=== PATIENT | female | born 1970 | race Caucasian/White ===

== ENCOUNTER 2016-08-26 22:47 | Emergency (ER) | payer OTHER ==
[2016-08-26 22:56] VITALS: BP 141/78; PULSE 94; TEMP 98.7; BMI 23.0
[2016-08-26] MEDS ORDERED: ACETAMINOPHEN 650 MG/20.3 ML ORAL SOLUTION (CUPS) PO ONE (23:24)
[2016-08-26] MEDS ORDERED: ACETAMINOPHEN 325 MG TABLET (FP) ONE (23:35)
[2016-08-26 23:48] LABS: BASOPHIL 0.5 % (0-2.0); MCH 32.8 pg (25.7-33.7); MCHC 33.4 g/dl (32.0-36.0); MEAN CELL VOLUME 98.2 fl (80-96); MEAN PLT VOLUME 7.2 fl (7.5-11.1); PLATELET COUNT 409 K/MM3 (134-434); WHITE BLOOD COUNT 9.1 K/mm3 (4.0-10.0)
[2016-08-26 23:52] LABS: URINE APPEARANCE CLEAR; URINE BILIRUBIN NEGATIVE (NEGATIVE); URINE COLOR YELLOW; URINE GLUCOSE (UA) NEGATIVE (NEGATIVE); URINE KETONE TRACE (NEGATIVE); URINE NITRITE NEGATIVE (NEGATIVE); URINE PROTEIN NEGATIVE (NEGATIVE); URINE UROBILINOGEN NEGATIVE E.U./dl (0.2-1.0)
[2016-08-26 23:54] LABS: URINE BLOOD 3+ (NEGATIVE); URINE LEUK ESTERASE TRACE (NEGATIVE)
[2016-08-27] LABS: URINE BACTERIA FEW /hpf (NONE SEEN); URINE MUCUS RARE; URINE RBC 93 /hpf (0-3); URINE WBC 2 /hpf (3-5)
[2016-08-27 00:26] LABS: ALBUMIN 3.5 g/dl (3.4-5.0); ANION GAP 10 (8-16); CALCIUM 8.9 mg/dL (8.5-10.1); CO2 25 mmol/L (21-32); CREATININE 0.7 mg/dL (0.55-1.02); GLUCOSE,RANDOM 96 mg/dL (74-106); SGOT/AST 41 U/L (15-37); SGPT/ALT 60 U/L (12-78)
--- NOTE | 2016-08-27 00:33 | PDOC ---
History of Present Illness - General History Source: Patient, Spouse Exam Limitations: No Limitations - History of Present Illness Initial Comments: 08/27/16 01:16 The patient is a 46 year old female, with a significant past medical history of breast CA (in remission), who presents to the emergency department with intermittent lower abdominal cramping and vaginal bleeding for the past 3 days but worsening tonight. The patient reports blood clots present with the vaginal bleeding. She states that her last menstrual period was 2 months ago, she does not know if she is currently . The patients is with her in the ED. The patient's primary language is Maltese, is translating. The patient denies fever, chills, nausea, vomiting, vaginal discharge or any dysuria. Allergies: None reported. Past Surgical History: Appendectomy Social History: Non smoker. Denies alcohol or drug use. <Salud Tellez - Last Filed: 08/27/16 01:55> - General History Source: Patient, Spouse Exam Limitations: No Limitations <Aguilar Leon - Last Filed: 08/27/16 02:18> - General Chief Complaint: Vaginal Bleeding Stated Complaint: ABDOMINAL PAIN Time Seen by Provider: 08/26/16 23:05 Past History <Salud Tellez - Last Filed: 08/27/16 01:55> - Past Medical History Anemia: No Asthma: No Cancer: Yes (LEFT breast) Cardiac Disorders: No CVA: No COPD: No CHF: No Dementia: No Diabetes: No GI Disorders: No Disorders: No HTN: No Hypercholesterolemia: No Liver Disease: No Seizures: No Thyroid Disease: No - Surgical History Abdominal Surgery: Yes Appendectomy: Yes Cardiac Surgery: No Cholecystectomy: No Lung Surgery: No Neurologic Surgery: No Orthopedic Surgery: No - Reproductive History (#): 3 Para: 2 - Psycho/Social/Smoking Cessation Hx Anxiety: No Suicidal Ideation: No Smoking Status: No Smoking History: Never smoked Have you smoked in the past 12 months: No Number of Cigarettes Smoked Daily: 0 Hx Alcohol Use: No Drug/Substance Use Hx: No Substance Use Type: None Hx Substance Use Treatment: No <Aguilar Leon - Last Filed: 08/27/16 02:18> - Past Medical History Allergies/Adverse Reactions: Allergies Allergy/AdvReac Type Severity Reaction Status Date / Time No Known Drug Allergies Allergy Verified 02/21/16 23:46 Home Medications: Ambulatory Orders Acetaminophen [Tylenol] 650 mg PO Q4H PRN #20 tablet 08/27/16 Cephalexin [Keflex] 500 mg PO BID #14 capsule 08/27/16 Review of Systems - Review of Systems Able to Perform ROS?: Yes Comments:: 08/27/16 01:13 GENERAL/CONSTITUTIONAL: No fever or chills. No weakness. HEAD, EYES, EARS, NOSE AND THROAT: No change in vision. No ear pain or discharge. No sore throat. CARDIOVASCULAR: No chest pain or shortness of breath. RESPIRATORY: No cough, wheezing, or hemoptysis. GASTROINTESTINAL: +Abdominal cramping. No nausea, vomiting, diarrhea or constipation. GENITOURINARY: +Vaginal bleeding. No dysuria, frequency, or change in urination. MUSCULOSKELETAL: No joint or muscle swelling or pain. No neck or back pain. SKIN: No rash. NEUROLOGIC: No headache, vertigo, loss of consciousness, or change in strength/ sensation. ENDOCRINE: No increased thirst. No abnormal weight change. HEMATOLOGIC/LYMPHATIC: No anemia, easy bleeding, or history of blood clots. ALLERGIC/IMMUNOLOGIC: No hives or skin allergy. <Salud Tellez - Last Filed: 08/27/16 01:55> *Physical Exam - Vital Signs Last Vital Signs Temp Pulse Resp BP Pulse Ox 98.7 F 94 H 28 H 141/78 100 08/26/16 22:54 08/26/16 22:54 08/26/16 22:54 08/26/16 22:54 08/26/16 22:54 - Physical Exam Comments: 08/27/16 01:13 GENERAL: Awake, alert, and fully oriented, uncomfortable appearing. HEAD: No signs of trauma. EYES: PERRLA, EOMI, sclera anicteric, conjunctiva clear. ENT: Auricles normal inspection, hearing grossly normal, nares patent, oropharynx clear without exudates. Moist mucosa. NECK: Normal ROM, supple, no lymphadenopathy, JVD, or masses. LUNGS: Breath sounds equal, clear to auscultation bilaterally. No wheezes, and no crackles. HEART: Regular rate and rhythm, normal S1 and S2, no murmurs, rubs or gallops. ABDOMEN: Soft, nontender, normoactive bowel sounds. No guarding, no rebound. No masses. EXTREMITIES: Normal range of motion, no edema. No clubbing or cyanosis. No cords , erythema, or tenderness. NEUROLOGICAL: Cranial nerves II through XII intact. Normal speech, normal gait. SKIN: Warm, dry, normal turgor, no rashes or lesions noted. PELVIC EXAM: Blood in vault. Cervical os is closed. Cervical motion tenderness. <ElsmoreSalud Faulkner - Last Filed: 08/27/16 01:55> - Vital Signs Last Vital Signs Temp Pulse Resp BP Pulse Ox 98.7 F 94 H 28 H 141/78 100 08/26/16 22:54 08/26/16 22:54 08/26/16 22:54 08/26/16 22:54 08/26/16 22:54 <Aguilar Leon - Last Filed: 08/27/16 02:18> ED Treatment Course - LABORATORY CBC & Chemistry Diagram: 08/26/16 23:30 08/26/16 23:30 - ADDITIONAL ORDERS Additional order review: Laboratory Results 08/26/16 08/26/16 23:30 23:30 Sodium 139 Potassium 4.2 Chloride 104 Carbon Dioxide 25 Anion Gap 10 BUN 17 Creatinine 0.7 Creat Clearance w eGFR > 60 Random Glucose 96 Calcium 8.9 Total Bilirubin 0.3 AST 41 H D ALT 60 D Alkaline Phosphatase 118 H D Total Protein 7.6 Albumin 3.5 Lipase 272 Beta HCG, Quant 1137.3 Urine Color Yellow Urine Appearance Clear Urine pH 5.0 Ur Specific [place] 1.024 Urine Protein Negative Urine Glucose (UA) Negative Urine Ketones Trace H Urine Blood 3+ H Urine Nitrite Negative Urine Bilirubin Negative Urine Urobilinogen Negative Ur Leukocyte Esterase Trace H Urine RBC 93 Urine WBC 2 Ur Epithelial Cells Rare Urine Bacteria Few Urine Mucus Rare Urine HCG, Qual Positive 08/26/16 23:30 RBC 3.49 L MCV 98.2 H MCHC 33.4 RDW 12.0 MPV 7.2 L Neutrophils % 70.0 D Lymphocytes % 23.2 D Monocytes % 5.3 Eosinophils % 1.0 Basophils % 0.5 - Medications Given in the ED: ED Medications Discontinued Medications Generic Name Dose Route Start Last Admin Trade Name Freq PRN Reason Stop Dose Admin Acetaminophen 975 mg 08/26/16 23:24 08/26/16 23:37 Tylenol Oral Solution - PO 08/26/16 23:25 975 mg ONCE ONE Administration <Salud Tellez - Last Filed: 08/27/16 01:55> - LABORATORY CBC & Chemistry Diagram: 08/26/16 23:30 08/26/16 23:30 - ADDITIONAL ORDERS Additional order review: Laboratory Results 08/26/16 23:30 Urine Color Yellow Urine Appearance Clear Urine pH 5.0 Ur Specific [place] 1.024 Urine Protein Negative Urine Glucose (UA) Negative Urine Ketones Trace H Urine Blood 3+ H Urine Nitrite Negative Urine Bilirubin Negative Urine Urobilinogen Negative Ur Leukocyte Esterase Trace H Urine RBC 93 Urine WBC 2 Ur Epithelial Cells Rare Urine Bacteria Few Urine Mucus Rare Urine HCG, Qual Positive 08/26/16 23:30 RBC 3.49 L MCV 98.2 H MCHC 33.4 RDW 12.0 MPV 7.2 L Neutrophils % 70.0 D Lymphocytes % 23.2 D Monocytes % 5.3 Eosinophils % 1.0 Basophils % 0.5 - RADIOLOGY Radiology Studies Ordered: Category Date Time Status TRANSVAGINAL US PREG [US] Stat Ultrasound 08/27/16 00:03 Ordered - Medications Given in the ED: ED Medications Discontinued Medications Generic Name Dose Route Start Last Admin Trade Name Freq PRN Reason Stop Dose Admin Acetaminophen 975 mg 08/26/16 23:24 08/26/16 23:37 Tylenol Oral Solution - PO 08/26/16 23:25 975 mg ONCE ONE Administration <Aguilar Leon - Last Filed: 08/27/16 02:18> Medical Decision Making - Medical Decision Making 08/27/16 01:55 EXAM: TRANSVAGINAL US PREG Reviewed By: Dr. Irwin Rosenberg IMPRESSION: Normal exam without evidence of IUP. Considering the hCG level, findings do not represent a normal early . Miscarriage and ectopic are possible, and follow up sonography with correlation to hCG levels is recommended. EXAM: ABDOMEN US Reviewed By: Dr. Irwin Rosenberg IMPRESSION: No ascites. Multiple gallstones. <Salud Tellez - Last Filed: 08/27/16 01:55> - Medical Decision Making 08/27/16 00:29 A portion of this note was documented by scribe services under my direction. I have reviewed the details of the note, within reason, and agree with the documentation with the following case summary and management plan written by me. Patient treated in the ED. Nursing notes are reviewed and incorporated into the medical decision-making. Vital signs reviewed. Peripheral IV access obtained by the nurse, laboratory studies are drawn and sent, reviewed and interpreted by myself. Vital Signs Temp Pulse Resp BP Pulse Ox 98.7 F 94 H 28 H 141/78 100 08/26/16 22:54 08/26/16 22:54 08/26/16 22:54 08/26/16 22:54 08/26/16 22:54 46-year-old female with past medical history breast cancer history status post bilateral mastectomy, in remission, presents with vaginal bleeding. Patient reports last menstrual period 2 months ago. Started noticing bleeding 3 days ago with blood clots and heavy vaginal bleeding. Has had small intermittent vaginal bleeding but persistent lower abdominal cramping. Denies dysuria or vaginal discharge. The patient is urine test positive. Her cervical os is closed. Patient 's differential includes ectopic versus threatened miscarriage versus complete . We'll obtain labs, beta hCG, type and screen, transvaginal ultrasound and reassess. 08/27/16 01:49 Ultrasound reviewed. FAST negative. Normal exam without evidence of IUP. Clinically correlate. 08/27/16 02:10 CBC, BMP 08/26/16 23:30 08/26/16 23:30 CMP Sodium 139 mmol/L (136-145) 08/26/16 23:30 Potassium 4.2 mmol/L (3.5-5.1) 08/26/16 23:30 Chloride 104 mmol/L (98-107) 08/26/16 23:30 Carbon Dioxide 25 mmol/L (21-32) 08/26/16 23:30 Anion Gap 10 (8-16) 08/26/16 23:30 BUN 17 mg/dL (7-18) 08/26/16 23:30 Creatinine 0.7 mg/dL (0.55-1.02) 08/26/16 23:30 Creat Clearance w eGFR > 60 (>60) 08/26/16 23:30 Random Glucose 96 mg/dL (74-106) 08/26/16 23:30 Calcium 8.9 mg/dL (8.5-10.1) 08/26/16 23:30 Total Bilirubin 0.3 mg/dL (0.2-1.0) 08/26/16 23:30 AST 41 U/L (15-37) H D 08/26/16 23:30 ALT 60 U/L (12-78) D 08/26/16 23:30 Alkaline Phosphatase 118 U/L (45-117) H D 08/26/16 23:30 Total Protein 7.6 g/dl (6.4-8.2) 08/26/16: Albumin 3.5 g/dl (3.4-5.0) 08/26/16: Lipase 272 U/L (73-393) 08/26/16 Beta HCG, Quant 1137.3 mIU/ml 08/26/16 Urine Test Results Urine Color Yellow 08/26/16 Urine Appearance Clear 08/26/16: Urine pH 5.0 (5.0-8.0) 08/26/16: Ur Specific [place] 1.024 (1.001-1.035) 08/26/16: Urine Protein Negative (NEGATIVE) 08/26/16:30 Urine Glucose (UA) Negative (NEGATIVE) 08/26/16: Urine Ketones Trace (NEGATIVE) H 08/26/16: Urine Blood 3+ (NEGATIVE) H 08/26/16 23:30 Urine Nitrite Negative (NEGATIVE) 08/26/16:30 Urine Bilirubin Negative (NEGATIVE) 08/26/16:30 Ur Leukocyte Esterase Trace (NEGATIVE) H 08/26/16:30 Urine RBC 93 /hpf (0-3) 08/26/16 23:30 Urine WBC 2 /hpf (3-5) 08/26/16:30 Ur Epithelial Cells Rare /hpf (FEW) 08/26/16:30 Urine Bacteria Few /hpf (NONE SEEN) 08/26/16: Urine Mucus Rare 08/26/16: Rh positive. After reassessment with tylenol, patient reports significant relief. Trace leuks in urine. Will prescribe keflex. I had discussed with the patient and her that with a beta HCG 1137 and undetectable IUP, ectopic is still within the differential. Now that the patient is more comfortable, the patient can be discharged with the caveat that she returns in 48 hours for a repeat beta HCG and ultrasound. I instructed them that if the bleeding is significant or the patient feels uncontrollable pain, she needs to return to the ER for further evaluation. I discussed the physical exam findings, ancillary test results and final diagnoses with the patient. I answered all of the patient's questions. The patient was satisfied with the care received and felt comfortable with the discharge plan and treatment plan. The patient will call their primary care physician within 24 hours to arrange follow-up and will return to the Emergency Department with any new, persistant or worsening symptoms. <Aguilar Leon - Last Filed: 08/27/16 02:18> *DC/Admit/Observation/Transfer - Attestations Scribe Attestion: 08/27/16 01:00 Documentation prepared by Salud Tellez, acting as medical cost consultant for Aguilar Leon MD. <Salud Tellez - Last Filed: 08/27/16 01:55> - Discharge Dispostion Admit: No <Aguilar Leon - Last Filed: 08/27/16 02:18> Diagnosis at time of Disposition: Vaginal bleeding before 22 weeks gestation - Discharge Dispostion Disposition: HOME Condition at time of disposition: Stable - Prescriptions Prescriptions: Cephalexin [Keflex] 500 mg PO BID #14 capsule Acetaminophen [Tylenol] 650 mg PO Q4H PRN #20 tablet PRN Reason: Pain - Patient Instructions Printed Discharge Instructions: DI for Vaginal Bleeding During Additional Instructions: Please return to the ER in 2 days for repeat blood work (beta HCG) and ultrasound. If you notice any uncontrollable bleeding or uncontrollable pain, please return to the ER for further evaluation. Take 500 mg keflex (antibiotic) every 12 hours for your urine. Take 650 mg tylenol every 4 hours as needed for pain. Do NOT take any motrin as this is not safe for . Print Language: LIBERIAN
[2016-08-27 00:44] LABS: ALK PHOS 118 U/L (45-117); BILIRUBIN,TOTAL 0.3 mg/dL (0.2-1.0); TOT PROT 7.6 g/dl (6.4-8.2)
[2016-08-27] MEDS ORDERED: CEPHALEXIN MONOHYDRATE 500 MG CAPSULE (UD) PO ONE (02:10)
--- NOTE | 2016-08-27 18:01 | PDOC ---
*Physical Exam - Vital Signs Last Vital Signs Temp Pulse Resp BP Pulse Ox 98.7 F 94 H 28 H 141/78 100 08/26/16 22:54 08/26/16 22:54 08/26/16 22:54 08/26/16 22:54 08/26/16 22:54 ED Treatment Course - LABORATORY CBC & Chemistry Diagram: 08/26/16 23:30 08/26/16 23:30 - ADDITIONAL ORDERS Additional order review: 08/26/16 23:30 RBC 3.49 L MCV 98.2 H MCHC 33.4 RDW 12.0 MPV 7.2 L Neutrophils % 70.0 D Lymphocytes % 23.2 D Monocytes % 5.3 Eosinophils % 1.0 Basophils % 0.5 - Medications Given in the ED: ED Medications Discontinued Medications Generic Name Dose Route Start Last Admin Trade Name Freq PRN Reason Stop Dose Admin Acetaminophen 975 mg 08/26/16 23:24 08/26/16 23:37 Tylenol Oral Solution - PO 08/26/16 23:25 975 mg ONCE ONE Administration Cephalexin HCl 500 mg 08/27/16 02:10 08/27/16 03:02 Keflex - PO 08/27/16 02:11 500 mg ONCE ONE Administration *DC/Admit/Observation/Transfer Diagnosis at time of Disposition: Vaginal bleeding before 22 weeks gestation - Discharge Dispostion Disposition: HOME Condition at time of disposition: Stable - Prescriptions Prescriptions: Cephalexin [Keflex] 500 mg PO BID #14 capsule Acetaminophen [Tylenol] 650 mg PO Q4H PRN #20 tablet PRN Reason: Pain - Referrals - Patient Instructions Printed Discharge Instructions: DI for Vaginal Bleeding During Additional Instructions: Please return to the ER in 2 days for repeat blood work (beta HCG) and ultrasound. If you notice any uncontrollable bleeding or uncontrollable pain, please return to the ER for further evaluation. Take 500 mg keflex (antibiotic) every 12 hours for your urine. Take 650 mg tylenol every 4 hours as needed for pain. Do NOT take any motrin as this is not safe for . Print Language: YAKUT - Post Discharge Activity
== END 2016-08-27 03:03 | disposition home or self-care (01) ==
LOC: JER 22:47
DX: O20.8 Other hemorrhage in early pregnancy (principal); Z3A.01 Less than 8 weeks gestation of pregnancy
CPT/HCPCS: 36415; 76700-TC; 76817-TC; 80053; 81003; 81015; 83690; 84702; 84703; 85025; 86850; 86900; 86901; 99283-25

== ENCOUNTER 2017-04-29 15:57 | Emergency (ER) | payer OTHER ==
[2017-04-29 16:13] VITALS: BMI 24.7
--- NOTE | 2017-04-29 16:27 | PDOC ---
History of Present Illness <Onelia Avina - Last Filed: 04/29/17 16:27> - General History Source: Patient Exam Limitations: No Limitations - History of Present Illness Initial Comments: 04/29/17 16:39 The patient is a 46 year old female brought via EMS and presenting with her , with a significant past medical history of left sided breast CA ( currently on chemo), who presents to the emergency department with lightheadedness, palpitations, generalized weakness, cough, nausea and loss of appetite. The notes that the patient is currently in chemo, with the last treatment being 5 days ago. She reports that her cough is dry in nature and that she has not been eating or drinking normally. The patient denies chest pain, shortness of breath, headache and dizziness. Denies fever, chills, vomit, diarrhea and constipation. Denies dysuria, frequency, urgency and hematuria. Allergies: None Past surgical history: Appendectomy Social history: No alcohol, tobacco or drug use reported Oncologist - Dr. Metz ([phone]) Assitant - Beckie Crews <Pierre Ortega - Last Filed: 04/29/17 16:30> <Teresita Adrian - Last Filed: 04/29/17 20:33> - General Chief Complaint: Lightheaded Stated Complaint: LIGHTHEADED Past History - Past Medical History Anemia: No Asthma: No Cancer: Yes (LEFT breast) Cardiac Disorders: No CVA: No COPD: No CHF: No Dementia: No Diabetes: No GI Disorders: No Disorders: No HTN: No Hypercholesterolemia: No Liver Disease: No Seizures: No Thyroid Disease: No - Surgical History Abdominal Surgery: Yes Appendectomy: Yes Cardiac Surgery: No Cholecystectomy: No Lung Surgery: No Neurologic Surgery: No Orthopedic Surgery: No - Reproductive History (#): 3 Para: 2 - Immunization History Immunization Up to Date: Yes - Suicide/Smoking/Psychosocial Hx Smoking Status: No Smoking History: Never smoked Have you smoked in the past 12 months: No Number of Cigarettes Smoked Daily: 0 Information on smoking cessation initiated: No Hx Alcohol Use: No Drug/Substance Use Hx: No Substance Use Type: None Hx Substance Use Treatment: No <Onelia Avina - Last Filed: 04/29/17 16:27> <Pierre Ortega - Last Filed: 04/29/17 16:30> <Teresita Adrian - Last Filed: 04/29/17 20:33> - Past Medical History Allergies/Adverse Reactions: Allergies Allergy/AdvReac Type Severity Reaction Status Date / Time No Known Drug Allergies Allergy Verified 04/29/17 16:08 Home Medications: Ambulatory Orders Ondansetron HCl 8 mg PO Q6H 04/29/17 Sulfamethoxazole/Trimethoprim [Bactrim Ds -] 1 tab PO BID #14 tablet 04/29/17 Review of Systems - Review of Systems Able to Perform ROS?: Yes Comments:: 04/29/17 16:31 GENERAL/CONSTITUTIONAL: (+) Generalized weakness, loss of appetite. No fever or chills. HEAD, EYES, EARS, NOSE AND THROAT: No change in vision. No ear pain or discharge. No sore throat.- CARDIOVASCULAR: No chest pain or shortness of breath RESPIRATORY: (+) Cough. No wheezing, or hemoptysis. GASTROINTESTINAL: (+) Nausea. No vomiting, diarrhea or constipation. GENITOURINARY: No dysuria, frequency, or change in urination. MUSCULOSKELETAL: No joint or muscle swelling or pain. No neck or back pain. SKIN: No rash NEUROLOGIC: (+) Lightheadedness. No headache, loss of consciousness, or change in strength/sensation. ENDOCRINE: No increased thirst. No abnormal weight change HEMATOLOGIC/LYMPHATIC: No anemia, easy bleeding, or history of blood clots. ALLERGIC/IMMUNOLOGIC: No hives or skin allergy. <Pierre Ortega - Last Filed: 04/29/17 16:30> *Physical Exam - Vital Signs Last Vital Signs Temp Pulse Resp BP Pulse Ox 98.9 F 96 H 14 97/55 100 04/29/17 16:08 04/29/17 16:08 04/29/17 16:08 04/29/17 16:08 04/29/17 16:08 <Onelia Avina - Last Filed: 04/29/17 16:27> - Vital Signs Last Vital Signs Temp Pulse Resp BP Pulse Ox 98.9 F 96 H 14 97/55 100 04/29/17 16:08 04/29/17 16:08 04/29/17 16:08 04/29/17 16:08 04/29/17 16:08 - Physical Exam Comments: 04/29/17 16:30 GENERAL: Awake, alert, and fully oriented, in no acute distress HEAD: No signs of trauma, normocephalic, atraumatic EYES: PERRLA, EOMI, sclera anicteric, conjunctiva clear ENT: Auricles normal inspection, hearing grossly normal, nares patent, oropharynx clear without exudates. Moist mucosa NECK: Normal ROM, supple, no lymphadenopathy, JVD, or masses LUNGS: No distress, speaks full sentences, clear to auscultation bilaterally HEART: Regular rate and rhythm, normal S1 and S2, no murmurs, rubs or gallops, peripheral pulses normal and equal bilaterally. ABDOMEN: Soft, nontender, normoactive bowel sounds. No guarding, no rebound. No masses EXTREMITIES : Normal inspection, Normal range of motion, no edema. No clubbing or cyanosis. NEUROLOGICAL: Cranial nerves II through XII grossly intact. Normal speech, normal gait, no focal sensorimotor deficits SKIN: Warm, Dry, normal turgor, no rashes or lesions noted. <Pierre Ortega - Last Filed: 04/29/17 16:30> - Vital Signs Last Vital Signs Temp Pulse Resp BP Pulse Ox 97.9 F 82 18 98/63 96 04/29/17 19:07 04/29/17 19:07 04/29/17 19:07 04/29/17 19:07 04/29/17 19:07 <Teresita Adrian - Last Filed: 04/29/17 20:33> ED Treatment Course - LABORATORY CBC & Chemistry Diagram: 04/29/17 17:24 04/29/17 17:24 - ADDITIONAL ORDERS Additional order review: Laboratory Results 04/29/17 04/29/17 04/29/17 18:00 17:24 17:24 Sodium 135 L Potassium 4.1 Chloride 102 Carbon Dioxide 26 Anion Gap 7 L BUN 14 Creatinine 0.7 Creat Clearance w eGFR > 60 Random Glucose 107 H Lactic Acid 1.3 Calcium 8.4 L Total Bilirubin 0.3 AST 19 D ALT 25 D Alkaline Phosphatase 235 H D Creatine Kinase 49 Troponin I < 0.02 Total Protein 7.1 Albumin 3.6 Urine Color Yellow Urine Appearance Slcloudy Urine pH 6.0 Urine Protein Negative Urine Glucose (UA) Negative Urine Ketones Negative Urine Blood 3+ H Urine Nitrite Positive Urine Bilirubin Negative Urine Urobilinogen Negative Urine RBC 3 Urine WBC 8 Ur Epithelial Cells Rare Urine Bacteria Many Urine Mucus Rare 04/29/17 17:24 RBC 2.67 L D MCV 97.1 H MCHC 35.0 RDW 17.0 H D MPV 6.5 L Neutrophils % No Result Required. Lymphocytes % No Result Required. - Medications Given in the ED: ED Medications Discontinued Medications Generic Name Dose Route Start Last Admin Trade Name Wil PRN Reason Stop Dose Admin Metoclopramide HCl 10 mg 04/29/17 16:38 04/29/17 17:02 Reglan Injection - IVPB 04/29/17 16:39 10 mg ONCE ONE Administration Sodium Chloride 1,000 ml 04/29/17 16:39 04/29/17 17:02 Normal Saline - IV 04/29/17 16:40 1,000 ml ONCE ONE Administration Sodium Chloride 1,000 ml 04/29/17 18:27 04/29/17 19:08 Normal Saline - IV 04/29/17 18:28 1,000 ml ONCE ONE Administration Trimethoprim/Sulfamethoxazole 1 each 04/29/17 19:54 04/29/17 20:01 Bactrim Ds - PO 04/29/17 19:55 1 each ONCE ONE Administration <Teresita Adrian - Last Filed: 04/29/17 20:33> Medical Decision Making - Medical Decision Making 04/29/17 20:32 Pt is feeling better in the ER after hydration. She has a UTI that it nitrite positive. Pt confirms that she felt dysuria this AM. She will be treated with bactrim DS BID. Pt is to follow with PMD. <Teresita Adrian - Last Filed: 04/29/17 20:33> *DC/Admit/Observation/Transfer <Onelia Avina - Last Filed: 04/29/17 16:27> - Attestations Scribe Attestion: 04/29/17 16:30 Documentation prepared by Pierre Ortega, acting as biomedical engineering technologist for Onelia Avina MD <Pierre Ortega - Last Filed: 04/29/17 16:30> <Teresita Adrian - Last Filed: 04/29/17 20:33> Diagnosis at time of Disposition: UTI (urinary tract infection), Anemia, Nausea and vomiting - Discharge Dispostion Disposition: HOME Condition at time of disposition: Stable - Prescriptions Prescriptions: Sulfamethoxazole/Trimethoprim [Bactrim Ds -] 1 tab PO BID #14 tablet - Patient Instructions Printed Discharge Instructions: Urinary Tract Infection, Nausea and Vomiting- Adult
[2017-04-29] MEDS ORDERED: METOCLOPRAMIDE HCL INJECTION 10 MG/2 ML VIAL IVPB ONE (16:38)
[2017-04-29] MEDS ORDERED: SODIUM CHLORIDE 0.9% 1000 ML INFUS.BAG IV ONE ×2 (16:39→18:27)
[2017-04-29] MEDS ORDERED: METOCLOPRAMIDE HCL INJECTION 10 MG/2 ML VIAL ONE (17:00)
[2017-04-29 17:35] LABS: MEAN CELL VOLUME 97.1 fl (80-96); MEAN PLT VOLUME 6.5 fl (7.5-11.1); PLATELET COUNT 328 K/MM3 (134-434)
[2017-04-29 18:00] LABS: ALBUMIN 3.6 g/dl (3.4-5.0); ANION GAP 7 (8-16); BILIRUBIN,TOTAL 0.3 mg/dL (0.2-1.0); CALCIUM 8.4 mg/dL (8.5-10.1); CO2 26 mmol/L (21-32); CREATININE 0.7 mg/dL (0.55-1.02); GLUCOSE,RANDOM 107 mg/dL (74-106); SGPT/ALT 25 U/L (12-78); TOT PROT 7.1 g/dl (6.4-8.2)
[2017-04-29 18:02] LABS: ALK PHOS 235 U/L (45-117); CPK 49 IU/L (26-192); TROPONIN I < 0.02 ng/ml (0.00-0.05)
[2017-04-29 18:03] LABS: SGOT/AST 19 U/L (15-37)
[2017-04-29 18:10] LABS: URINE APPEARANCE SLCLOUDY; URINE BILIRUBIN NEGATIVE (NEGATIVE); URINE BLOOD 3+ (NEGATIVE); URINE COLOR YELLOW; URINE GLUCOSE (UA) NEGATIVE (NEGATIVE); URINE KETONE NEGATIVE (NEGATIVE); URINE LEUK ESTERASE NEGATIVE (NEGATIVE); URINE NITRITE POSITIVE (NEGATIVE); URINE PROTEIN NEGATIVE (NEGATIVE); URINE UROBILINOGEN NEGATIVE mg/dL (0.2-1.0)
[2017-04-29 18:21] LABS: URINE BACTERIA MANY /hpf (NONE SEEN); URINE MUCUS RARE; URINE RBC 3 /hpf (0-3); URINE WBC 8 /hpf (3-5)
[2017-04-29 19:08] VITALS: BP 98/63; PULSE 82; TEMP 97.9
[2017-04-29 19:22] LABS: PLATELET ESTIMATE ADEQUATE (NORMAL); TOTAL CELLS COUNTED 100
[2017-04-29] MEDS ORDERED: SULFAMETHOXAZOLE/TRIMETHOPRIM 800MG/160MG D.S. TABLET PO ONE (19:54)
[2017-04-29] MEDS ORDERED: SULFAMETHOXAZOLE/TRIMETHOPRIM 800MG/160MG D.S. TABLET ONE (19:56)
[2017-04-29] MEDS ORDERED: NITROFURANTOIN MACROCRYSTAL 50 MG CAPSULE (FP) PO SCH (20:00)
--- NOTE | 2017-04-30 09:53 | EKG ---
Test Reason : Blood Pressure : / mmHG Vent. Rate : 076 BPM Atrial Rate : 076 BPM P-R Int : 144 ms QRS Dur : 082 ms QT Int : 418 ms P-R-T Axes : 053 004 040 degrees QTc Int : 470 ms NORMAL SINUS RHYTHM NONSPECIFIC T WAVE ABNORMALITY PROLONGED QT ABNORMAL ECG WHEN COMPARED WITH ECG OF 21-FEB-2016 23:51, T WAVE INVERSION NOW EVIDENT IN ANTERIOR LEADS Confirmed by ERIKA JOSEPH MD ([id number]) on 04/30/2017 9:53:41 AM Referred By: Confirmed By:ERIKA JOSEPH MD
== END 2017-04-29 20:28 | disposition home or self-care (01) ==
LOC: SUPCPDRO 15:57 → JER 15:57
PROC: 3E033GC Introduction of Other Therapeutic Substance into Peripheral Vein, Percutaneous Approach (ICD-10-PCS; principal; 2017-04-29)
DX: N39.0 Urinary tract infection, site not specified (principal); D64.9 Anemia, unspecified
CPT/HCPCS: 36415; 71010-TC; 80053; 81003; 81015; 83605; 84484; 85025; 93005; 93010; 96374; 99283-25

== ENCOUNTER 2019-09-02 17:15 | Emergency (ER) | payer OTHER ==
[2019-09-02 17:40] VITALS: TEMP 98; BMI 27.4
--- NOTE | 2019-09-02 18:11 | PDOC ---
History of Present Illness - General Chief Complaint: Nausea/Vomiting Stated Complaint: HYPERVENTILATION Time Seen by Provider: 09/02/19 17:26 - History of Present Illness Initial Comments: Ms. Martin is a 49 y/o female with PMH significant for left breast CA s/p bilateral mastectomy, s/p deep flap reconstruction, s/p axillary lymph node surgery, presenting today with epigastric abdominal pain that started this morning. Reports gradual onset of pain this morning around 9am, followed by nausea and vomiting x1. Pain is sharp and does not radiate. Reports fever and chills. Reports that later in the afternoon she began hyperventilating, with perioral and bilateral hand tingling, and subsequently felt lightheaded. Denies chest pain. Denies dysuria. Reports subjective fever. Per family at bedside states that she is often anxious. Meds: tamoxifen Past History - Past Medical History Allergies/Adverse Reactions: Allergies Allergy/AdvReac Type Severity Reaction Status Date / Time No Known Drug Allergies Allergy Verified 04/29/17 16:08 Home Medications: Ambulatory Orders Ranitidine HCl 150 mg PO BID #14 tablet 09/02/19 Anemia: No Asthma: No Cancer: Yes (LEFT breast) Cardiac Disorders: No CVA: No COPD: No CHF: No Dementia: No Diabetes: No GI Disorders: No Disorders: No HTN: No Hypercholesterolemia: No Liver Disease: No Seizures: No Thyroid Disease: No - Surgical History Abdominal Surgery: Yes Appendectomy: Yes Cardiac Surgery: No Cholecystectomy: No Lung Surgery: No Neurologic Surgery: No Orthopedic Surgery: No - Reproductive History (#): 3 Para: 2 - Immunization History Immunization Up to Date: Yes - Psycho Social/Smoking Cessation Hx Smoking Status: No Smoking History: Never smoked Have you smoked in the past 12 months: No Number of Cigarettes Smoked Daily: 0 Information on smoking cessation initiated: No Hx Alcohol Use: No Drug/Substance Use Hx: No Substance Use Type: None Hx Substance Use Treatment: No Review of Systems - Review of Systems Comments:: GENERAL/CONSTITUTIONAL: Reports fever. No weakness._ HEAD, EYES, EARS, NOSE AND THROAT: No change in vision. No change in hearing. No sore throat._ CARDIOVASCULAR: No chest pain or shortness of breath_ RESPIRATORY: Denies cough, hemoptysis. Reports hyperventilation. GASTROINTESTINAL: Reports nausea, vomiting, abdominal pain. GENITOURINARY: No dysuria, frequency, or change in urination._ MUSCULOSKELETAL: No joint or muscle swelling or pain. No neck or back pain._ SKIN: No rash_ NEUROLOGIC: No headache, vertigo, loss of consciousness, or change in strength/ sensation. Reports lightheadedness. ENDOCRINE: No increased thirst. No abnormal weight change_ HEMATOLOGIC/LYMPHATIC: No anemia, easy bleeding, or history of blood clots._ ALLERGIC/IMMUNOLOGIC: No hives or skin allergy._ *Physical Exam - Vital Signs Last Vital Signs Temp Pulse Resp BP Pulse Ox 98 F 98 H 22 H 130/85 99 09/02/19 17:30 09/02/19 17:30 09/02/19 17:30 09/02/19 17:30 09/02/19 17:30 - Physical Exam GENERAL: Awake, alert, and oriented to person/place/time, in no acute distress_ HEAD: No signs of trauma, normoc ephalic, atraumatic _ EYES: PERRLA, EOMI, sclera anicteric, conjunctiva clear_ ENT: Hearing grossly normal, nares patent, oropharynx clear without exudates. No uvular deviation. Moist mucosa_ NECK: Normal ROM, supple, no lymphadenopathy, JVD, or masses_ LUNGS: No distress, speaks in full sentences, clear to auscultation bilaterally _ HEART: Tachycardia, normal S1 and S2, no murmurs appreciated, peripheral pulses normal and equal bilaterally._ ABDOMEN: Soft, epigastric TTP, normoactive bowel sounds. No guarding, no rebound. No masses_ EXTREMITIES: Normal inspection, Normal range of motion, no edema. No clubbing or cyanosis_ NEUROLOGICAL: Cranial nerves II through XII grossly intact. Normal speech, normal gait, no focal sensorimotor deficits _ SKIN: Warm, Dry, normal turgor, no rashes or lesions noted_ ED Treatment Course - LABORATORY CBC & Chemistry Diagram: 09/02/19 18:34 09/02/19 18:34 - RADIOLOGY Radiology Studies Ordered: Category Date Time Status ABDOMEN & PELVIS CT WITH CONTR [CT] Stat CT Scan 09/02/19 18:08 Ordered CHEST X-RAY PORTABLE* [RAD] Stat Radiology 09/02/19 18:02 Ordered Medical Decision Making - Medical Decision Making 09/02/19 18:16 49F hx of breast CA s/p mastectomy and deep flap reconstruction 1 year ago, on tamoxifen, presenting with epigastric abdominal pain followed by hyperventilation. -cbc, cmp, lactic, lipase -ekg, trop, cxr -ct abd with iv contrast -ua, ucx, upreg -fluids 09/02/19 19:00 Care of the patient assumed by Dr. Saucedo. Discharge - Discharge Information Problems reviewed: Yes Clinical Impression/Diagnosis: Gastroenteritis Condition: Improved Disposition: HOME - Admission No - Additional Discharge Information Prescriptions: Ranitidine HCl 150 mg PO BID #14 tablet - Follow up/Referral - Patient Discharge Instructions Patient Printed Discharge Instructions: DI for Vomiting -- Adult Additional Instructions: Your visit: You were seen in the emergency room for abdominal pain and vomiting. You were given IV fluids and medication to help with nausea and pain. Your symptoms are improved, and you may return home. Labs/Imaging: A CAT scan of your lungs showed a small nodule on the right side. You are being given a copy of the report to give to your primary care doctor or oncologist. They will determine when you may need further imaging. Medications: You are being given a prescription for Zantac to take twice a day for 1 week. It will help calm your stomach. You are being given a dose right now, so you can start your prescription tomorrow morning. It was [facility]. Follow up: Follow up with your primary care doctor in the next week if you continue to have symptoms. Return to the emergency room or call 911 if you have chest pain, difficulty breathing, uncontrolled vomiting or diarrhea. - Post Discharge Activity
[2019-09-02] MEDS ORDERED: SODIUM CHLORIDE 0.9% 500 ML INFUS.BAG IV ONE (18:18)
[2019-09-02] MEDS ORDERED: ONDANSETRON 4 MG/2 ML VIAL IVPUSH ONE (18:51)
[2019-09-02] MEDS ORDERED: ACETAMINOPHEN 1000 MG/100 ML VIAL (NON FORMULARY) IVPB ONE (18:51)
[2019-09-02] MEDS ORDERED: morphine CARPU-JECT 2 MG/1 ML DISP.SYRIN IVPUSH ONE (18:51)
[2019-09-02] MEDS ORDERED: FAMOTIDINE 20 MG/50 ML IVPB 20 MG/50 ML MG IVPB ONE ×2 (18:51→19:25)
--- NOTE | 2019-09-02 18:52 | PDOC ---
Attending Attestation - Resident Resident Name: Baron Zamora - ED Attending Attestation I have performed the following: I have examined & evaluated the patient, The case was reviewed & discussed with the resident, I agree w/resident's findings & plan, Exceptions are as noted - HPI HPI: 09/02/19 18:47 49yo female with hx of L sided breast ca s/p mastectomy with lymph node dissection with abd pain today assoc with n/v x 1 episode. Last bm yesterday. No f/c. No cough. States chest tightness earlier today. Pt found by the family hyperventilating and uncomfortable. Pt biba from home for eval of abd pain. Pt denies dysuria. Pt with epigastric and suprapubic abd pain. Denies sob at this time. Pt is on tamoxifen. Pt denies cp or sob currently. - Physicial Exam PE: 09/02/19 18:49 Gen: aaox3, uncomfortable heent: EOMI, MMM heart: +s1s2 reg lungs: cta b/l abd: soft, epigastric and suprapubic ttp, no rebound or guarding, no cva ttp ext: no c/c/e - Medical Decision Making 09/02/19 18:51 a/p: 49yo female with abd pain and cp earlier today -hyperventilating upon arrival -pt appears uncomfortable and in distress -will send labs -will send for cta chest, abd/pelvis -will give meds, pain meds, zofran, ivf -will monitor and reassess 09/02/19 19:31 labs reviewed trop neg pt pending ct imaging
[2019-09-02 18:57] LABS: BASO % 0.1 % (0-2.0); EOS % 0.3 % (0-4.5); LYMPH % 6.3 % (8-40); MCHC 33.3 g/dl (32.0-36.0); MEAN CELL VOLUME 99.2 fl (80-96); MEAN PLT VOLUME 7.1 fl (7.5-11.1); MONO % 2.3 % (3.8-10.2); PLATELET COUNT 388 K/MM3 (134-434); RBC 3.93 M/mm3 (3.60-5.2); WHITE BLOOD COUNT 8.7 K/mm3 (4.0-10.0)
--- NOTE | 2019-09-02 19:08 | PDOC ---
*Physical Exam - Vital Signs Last Vital Signs Temp Pulse Resp BP Pulse Ox 98 F 98 H 22 H 130/85 99 09/02/19 17:30 09/02/19 17:30 09/02/19 17:30 09/02/19 17:30 09/02/19 17:30 ED Treatment Course - LABORATORY CBC & Chemistry Diagram: 09/02/19 18:34 09/02/19 18:34 - ADDITIONAL ORDERS Additional order review: Laboratory Results 09/02/19 18:34 Serum , Qual Negative 09/02/19 18:34 RBC 3.93 MCV 99.2 H MCHC 33.3 RDW 12.0 D MPV 7.1 L Neutrophils % 91.0 H D Lymphocytes % 6.3 L D Monocytes % 2.3 L Eosinophils % 0.3 Basophils % 0.1 Medical Decision Making - Medical Decision Making 09/02/19 21:36 Pt reports decreased nausea and no abdominal pain following Zofran, morphine, and fluids. CT abdomen shows enlarged colon, consistent with diarrheal illness. CTA chest shows no PE. Granulomatous disease present and 7mm non-calcified nodule present right posterior lobe. PO challenge tolerated d/c with Zantac Discharge - Discharge Information Problems reviewed: Yes Clinical Impression/Diagnosis: Gastroenteritis Condition: Improved Disposition: HOME - Additional Discharge Information Prescriptions: Ranitidine HCl 150 mg PO BID #14 tablet - Follow up/Referral - Patient Discharge Instructions Patient Printed Discharge Instructions: DI for Vomiting -- Adult Additional Instructions: Your visit: You were seen in the emergency room for abdominal pain and vomiting. You were given IV fluids and medication to help with nausea and pain. Your symptoms are improved, and you may return home. Labs/Imaging: A CAT scan of your lungs showed a small nodule on the right side. You are being given a copy of the report to give to your primary care doctor or oncologist. They will determine when you may need further imaging. Medications: You are being given a prescription for Zantac to take twice a day for 1 week. It will help calm your stomach. You are being given a dose right now, so you can start your prescription tomorrow morning. It was sent to the [facility]. Follow up: Follow up with your primary care doctor in the next week if you continue to have symptoms. Return to the emergency room or call 911 if you have chest pain, difficulty breathing, uncontrolled vomiting or diarrhea. - Post Discharge Activity
[2019-09-02 19:18] LABS: ALBUMIN 3.7 g/dl (3.4-5.0); ALK PHOS 92 U/L (45-117); ANION GAP 7 MMOL/L (8-16); BILIRUBIN,TOTAL 0.6 mg/dL (0.2-1); BLOOD UREA NITROGEN 12.3 mg/dL (7-18); CALCIUM 9.1 mg/dL (8.5-10.1); CHLORIDE 106 mmol/L (98-107); CO2 24 mmol/L (21-32); CREATININE 0.7 mg/dL (0.55-1.3); GLUCOSE,RANDOM 88 mg/dL (74-106); LIPASE 138 U/L (73-393); POTASSIUM 3.7 mmol/L (3.5-5.1); SGOT/AST 23 U/L (15-37); SGPT/ALT 28 U/L (13-61); SODIUM 137 mmol/L (136-145); TOT PROT 7.5 g/dl (6.4-8.2)
[2019-09-02 19:21] LABS: PLATELET ESTIMATE ADEQUATE
[2019-09-02] MEDS ORDERED: ONDANSETRON 4 MG/2 ML VIAL ONE (19:25)
[2019-09-02] MEDS ORDERED: ACETAMINOPHEN INJECTION 100 ML IVPB ONE (19:25)
[2019-09-02] MEDS ORDERED: MORPHINE SULFATE 2 MG/ML VIAL ONE (19:25)
[2019-09-02] MEDS ORDERED: FAMOTIDINE 20 MG TABLET PO ONE (21:59)
[2019-09-02] MEDS ORDERED: FAMOTIDINE 20 MG TABLET ONE (22:08)
[2019-09-02 22:20] VITALS: BP 106/67; PULSE 83
--- NOTE | 2019-09-03 09:24 | EKG ---
Test Reason : Blood Pressure : / mmHG Vent. Rate : 081 BPM Atrial Rate : 081 BPM P-R Int : 134 ms QRS Dur : 084 ms QT Int : 412 ms P-R-T Axes : 041 -28 040 degrees QTc Int : 478 ms NORMAL SINUS RHYTHM POSSIBLE ANTERIOR INFARCT , AGE UNDETERMINED ABNORMAL ECG WHEN COMPARED WITH ECG OF 29-APR-2017 18:15, QRS AXIS SHIFTED LEFT Confirmed by Baron Coburn MD ([id number]) on 09/03/2019 9:24:24 AM Referred By: Confirmed By:Baron Coburn MD
== END 2019-09-02 22:20 | disposition home or self-care (01) ==
LOC: JER 17:15
PROC: 3E0337Z Introduction of Electrolytic and Water Balance Substance into Peripheral Vein, Percutaneous Approach (ICD-10-PCS; principal; 2019-09-02)
PROC: 3E033GC Introduction of Other Therapeutic Substance into Peripheral Vein, Percutaneous Approach (ICD-10-PCS; 2019-09-02)
PROC: 3E033NZ Introduction of Analgesics, Hypnotics, Sedatives into Peripheral Vein, Percutaneous Approach (ICD-10-PCS; 2019-09-02)
PROC: 3E033NZ Introduction of Analgesics, Hypnotics, Sedatives into Peripheral Vein, Percutaneous Approach (ICD-10-PCS; 2019-09-02)
DX: K52.9 Noninfective gastroenteritis and colitis, unspecified (principal); Z85.3 Personal history of malignant neoplasm of breast; Z90.13 Acquired absence of bilateral breasts and nipples
CPT/HCPCS: 36415; 71045-TC-FY; 71275-TC; 74177-TC; 80053; 82550; 83605; 83690; 84484; 84703; 85025; 93005; 93010; 96365; 96375; 99283-25; J0131; Q9967

== ENCOUNTER 2021-03-06 12:02 | Emergency (ER) | payer OTHER ==
[2021-03-06 12:27] VITALS: BMI 27.6
[2021-03-06] MEDS ORDERED: diazePAM 5 MG TABLET PO ONE (13:14)
[2021-03-06] MEDS ORDERED: KETOROLAC TROMETHAMINE 30 MG/1 ML VIAL IM ONE (13:14)
[2021-03-06] MEDS ORDERED: diazePAM 5 MG TABLET ONE (14:17)
[2021-03-06] MEDS ORDERED: KETOROLAC TROMETHAMINE 30 MG/1 ML VIAL ONE (14:17)
[2021-03-06 14:47] LABS: BASO % 0.4 % (0-2.0); EOS % 0.7 % (0-4.5); HEMOGLOBIN 10.3 GM/dL (10.7-15.3); LYMPH % 36.9 % (8-40); MCHC 35.3 g/dl (32.0-36.0); MEAN CELL VOLUME 115.4 fl (80-96); MEAN PLT VOLUME 6.6 fl (7.5-11.1); MONO % 10.5 % (3.8-10.2); NEUT % 51.5 % (42.8-82.8); PLATELET COUNT 279 10^3/uL (134-434); RBC 2.52 M/mm3 (3.60-5.2); RDW 19.5 % (11.6-15.6)
[2021-03-06 14:52] LABS: MCH 40.8 pg (25.7-33.7)
[2021-03-06 15:08] LABS: CALCIUM 8.9 mg/dL (8.5-10.1); CHLORIDE 103 mmol/L (98-107); SODIUM 139 mmol/L (136-145)
[2021-03-06 15:10] LABS: ANION GAP 7 MMOL/L (8-16); BLOOD UREA NITROGEN 16.9 mg/dL (7-18); CO2 29 mmol/L (21-32); GLUCOSE,RANDOM 87 mg/dL (74-106)
[2021-03-06 15:11] VITALS: BP 122/80; PULSE 99; TEMP 98.4
[2021-03-06 15:13] LABS: CREATININE 0.8 mg/dL (0.55-1.3)
== END 2021-03-06 15:46 | disposition home or self-care (01) ==
LOC: JER 12:02
PROC: 3E023GC Introduction of Other Therapeutic Substance into Muscle, Percutaneous Approach (ICD-10-PCS; principal; 2021-03-06)
DX: M54.2 Cervicalgia (principal)
CPT/HCPCS: 36415; 72050-TC-FY; 80048; 84484; 85025; 93005; 93010; 99285-25

== ENCOUNTER 2021-11-02 04:56 | Inpatient (IN) | payer OTHER ==
[2021-11-02 05:38] VITALS: BMI 28.3
[2021-11-02] MEDS ORDERED: ONDANSETRON 4 MG/2 ML VIAL IVPUSH ONE (05:42)
[2021-11-02] MEDS ORDERED: ACETAMINOPHEN 1000 MG/100 ML BAG IVPB ONE (05:42)
[2021-11-02] MEDS ORDERED: FAMOTIDINE 20 MG TABLET PO ONE (05:43)
[2021-11-02] MEDS ORDERED: ACETAMINOPHEN INJECTION 100 ML IVPB ONE (06:08)
[2021-11-02] MEDS ORDERED: ONDANSETRON 4 MG/2 ML VIAL ONE (06:08)
[2021-11-02] MEDS ORDERED: FAMOTIDINE 20 MG TABLET ONE (06:08)
[2021-11-02 06:46] LABS: BASO % 0.2 % (0-2.0); EOS % 0.4 % (0-4.5); HEMOGLOBIN 10.8 GM/dL (10.7-15.3); LYMPH % 15.8 % (8-40); MCH 37.3 pg (25.7-33.7); MCHC 33.9 g/dl (32.0-36.0); MEAN CELL VOLUME 110.2 fl (80-96); MEAN PLT VOLUME 6.6 fl (7.5-11.1); MONO % 2.9 % (3.8-10.2); NEUT % 80.7 % (42.8-82.8); PH,URINE 8.5 (5.0-8.0); PLATELET COUNT 319 10^3/uL (134-434); RBC 2.91 M/mm3 (3.60-5.2); RDW 19.8 % (11.6-15.6); URINE APPEARANCE CLEAR; URINE BILIRUBIN NEGATIVE (NEGATIVE); URINE COLOR YELLOW; URINE GLUCOSE (UA) NEGATIVE (NEGATIVE); URINE KETONE NEGATIVE (NEGATIVE); URINE LEUK ESTERASE NEGATIVE (NEGATIVE); URINE NITRITE NEGATIVE (NEGATIVE); URINE PROTEIN NEGATIVE (NEGATIVE); URINE UROBILINOGEN 0.2 mg/dL (0.2-1.0); WHITE BLOOD COUNT 2.7 K/mm3 (4.0-10.0)
[2021-11-02 07:04] LABS: BLOOD UREA NITROGEN 10.9 mg/dL (7-18); CALCIUM 8.9 mg/dL (8.5-10.1)
[2021-11-02 07:05] LABS: ALBUMIN 3.7 g/dl (3.4-5.0)
[2021-11-02 07:08] LABS: CREATININE 0.9 mg/dL (0.55-1.3)
[2021-11-02 07:09] LABS: BILIRUBIN,TOTAL 0.5 mg/dL (0.2-1); TOT PROT 7.7 g/dl (6.4-8.2)
[2021-11-02 07:15] LABS: ACTIVATED PTT 28.4 SECONDS (25.2-36.5)
[2021-11-02 07:51] LABS: INR 0.99 (0.83-1.09); PROTHROMBIN TIME (PATIENT) 11.4 SEC (9.7-13.0)
[2021-11-02 08:41] LABS: ANISOCYTOSIS 2+; MACROCYTOSIS 2+
[2021-11-02] MEDS ORDERED: ACETAMINOPHEN 500 MG TABLET (FP) PO ONE (12:31)
[2021-11-02] MEDS ORDERED: ACETAMINOPHEN 500 MG TABLET (FP) ONE (12:38)
[2021-11-02] MEDS ORDERED: MELATONIN 5 MG TABLETS PO ONE (21:37)
[2021-11-03] MEDS ORDERED: BUPIVACAINE HCL/PF 0.5% (5MG/ML) 10 ML VIAL ONE (07:33)
[2021-11-03] MEDS ORDERED: PROPOFOL 20 ML ONE (07:57)
[2021-11-03] MEDS ORDERED: MIDAZOLAM HCL 2 MG/2 ML SINGLE DOSE VIAL ONE ×2 (07:57)
[2021-11-03] MEDS ORDERED: ROCURONIUM BROMIDE 50 MG/5 ML SYRINGE ONE ×2 (07:57→10:36)
[2021-11-03 08:59] LABS: BASO % 0.2 % (0-2.0); EOS % 0.6 % (0-4.5); HEMATOCRIT 28.1 % (32.4-45.2); HEMOGLOBIN 9.5 GM/dL (10.7-15.3); LYMPH % 35.5 % (8-40); MCH 37.6 pg (25.7-33.7); MCHC 33.9 g/dl (32.0-36.0); MEAN CELL VOLUME 110.8 fl (80-96); MEAN PLT VOLUME 6.3 fl (7.5-11.1); MONO % 6.3 % (3.8-10.2); NEUT % 57.4 % (42.8-82.8); PLATELET COUNT 263 10^3/uL (134-434); RBC 2.53 M/mm3 (3.60-5.2); RDW 19.2 % (11.6-15.6); WHITE BLOOD COUNT 2.1 K/mm3 (4.0-10.0)
[2021-11-03 09:07] LABS: INR 1.07 (0.83-1.09); PROTHROMBIN TIME (PATIENT) 12.3 SEC (9.7-13.0)
[2021-11-03 09:10] LABS: ACTIVATED PTT 27.4 SECONDS (25.2-36.5)
[2021-11-03 09:32] LABS: ALBUMIN 3.6 g/dl (3.4-5.0); CALCIUM 8.6 mg/dL (8.5-10.1)
[2021-11-03 09:33] LABS: BLOOD UREA NITROGEN 10.9 mg/dL (7-18); MAGNESIUM 2.4 mg/dL (1.8-2.4)
[2021-11-03 09:35] LABS: CREATININE 0.8 mg/dL (0.55-1.3); PHOSPHOROUS 3.3 mg/dL (2.5-4.9)
[2021-11-03 09:37] LABS: BILIRUBIN,TOTAL 0.7 mg/dL (0.2-1); TOT PROT 6.9 g/dl (6.4-8.2)
[2021-11-03] MEDS: PANTOPRAZOLE SODIUM 40 MG VIAL IVPUSH SCH (09:37)
[2021-11-03] MEDS: EXEMESTANE 25 MG TABLET PO SCH (09:37)
[2021-11-03] MEDS ORDERED: PALBOCICLIB 100 MG PO SCH (10:00)
[2021-11-03] MEDS ORDERED: LIDOCAINE HCL/PF 2% SDV 5ML VIAL ONE (10:37)
[2021-11-03] MEDS ORDERED: GLYCOPYRROLATE 0.2 MG/1 ML VIAL ONE ×3 (10:37→12:12)
[2021-11-03] MEDS ORDERED: NEOSTIGMINE METHYLSULFATE 0.5 MG/ML - 10 ML MDV ONE (10:37)
[2021-11-03] MEDS ORDERED: DEXAMETHASONE SOD PHOSPHATE 4 MG/1 ML VIAL ONE (10:37)
[2021-11-03] MEDS ORDERED: KETOROLAC TROMETHAMINE 30 MG/1 ML VIAL ONE (10:37)
[2021-11-03] MEDS ORDERED: ceFAZolin SODIUM 1 GM VIAL ONE (12:12)
[2021-11-03] MEDS ORDERED: ACETAMINOPHEN 325 MG TABLET (FP) PO PRN ×2 (14:48→14:52)
[2021-11-03] MEDS ORDERED: MELATONIN 5 MG TABLETS PO PRN (21:37)
[2021-11-04 08:26] LABS: HEMATOCRIT 28.8 % (32.4-45.2); HEMOGLOBIN 9.7 GM/dL (10.7-15.3); MCH 37.7 pg (25.7-33.7); MCHC 33.6 g/dl (32.0-36.0); MEAN CELL VOLUME 112.3 fl (80-96); MEAN PLT VOLUME 6.5 fl (7.5-11.1); PLATELET COUNT 268 10^3/uL (134-434); RBC 2.56 M/mm3 (3.60-5.2); RDW 18.9 % (11.6-15.6)
[2021-11-04 08:50] LABS: CALCIUM 8.9 mg/dL (8.5-10.1)
[2021-11-04 08:52] LABS: BLOOD UREA NITROGEN 10.4 mg/dL (7-18); MAGNESIUM 2.4 mg/dL (1.8-2.4)
[2021-11-04 08:54] LABS: WHITE BLOOD COUNT 1.8 K/mm3 (4.0-10.0)
[2021-11-04 08:55] LABS: CREATININE 0.8 mg/dL (0.55-1.3); PHOSPHOROUS 3.5 mg/dL (2.5-4.9)
[2021-11-04 09:49] LABS: ANISOCYTOSIS 1+; MACROCYTOSIS 2+; OVALOCYTE 1+
[2021-11-04] MEDS: EXEMESTANE 25 MG TABLET PO SCH (09:59)
[2021-11-04] MEDS: PANTOPRAZOLE SODIUM 40 MG VIAL IVPUSH SCH (10:00)
[2021-11-04] MEDS ORDERED: PIPERACILLIN/TAZOBACTAM 3.375 GM VIAL IVPB ONE ×2 (10:44→17:10)
[2021-11-04] MEDS ORDERED: DEXTROSE 5%-WATER - 50 ML IVPB ONE ×2 (10:45→17:10)
[2021-11-04] MEDS ORDERED: PIPERACILLIN/TAZOB 3.375 GM 3.375 GM in DEXTROSE 5%-WATER - 50 ML IVPB SCH ×2 (11:00→18:00)
[2021-11-04] MEDS ORDERED: TBO-FILGRASTIM 300 MCG/0.5 ML DISP.SYRINGE SQ ONE (12:00)
[2021-11-04] MEDS: LACTATED RINGERS SOLUTION 1,000 ML/1,000 ML INFUS.BAG IV SCH ×2 (12:26→21:19)
[2021-11-04] MEDS: PIPERACILLIN/TAZOB 3.375 GM 3.375 GM in DEXTROSE 5%-WATER - 50 ML IVPB SCH (17:23)
[2021-11-05] MEDS ORDERED: PIPERACILLIN/TAZOBACTAM 3.375 GM VIAL IVPB ONE ×3 (00:35→17:03)
[2021-11-05] MEDS ORDERED: DEXTROSE 5%-WATER - 50 ML IVPB ONE ×3 (00:35→17:03)
[2021-11-05] MEDS: PIPERACILLIN/TAZOB 3.375 GM 3.375 GM in DEXTROSE 5%-WATER - 50 ML IVPB SCH ×3 (01:33→17:45)
[2021-11-05 09:18] LABS: BASO % 0.3 % (0-2.0); EOS % 0.6 % (0-4.5); HEMATOCRIT 26.5 % (32.4-45.2); HEMOGLOBIN 9.1 GM/dL (10.7-15.3); LYMPH % 21.5 % (8-40); MCH 38.3 pg (25.7-33.7); MCHC 34.6 g/dl (32.0-36.0); MEAN CELL VOLUME 110.8 fl (80-96); MEAN PLT VOLUME 6.4 fl (7.5-11.1); MONO % 5.7 % (3.8-10.2); NEUT % 71.9 % (42.8-82.8); PLATELET COUNT 248 10^3/uL (134-434); RBC 2.39 M/mm3 (3.60-5.2); RDW 19.1 % (11.6-15.6); WHITE BLOOD COUNT 3.7 K/mm3 (4.0-10.0)
[2021-11-05 09:34] LABS: CALCIUM 8.5 mg/dL (8.5-10.1)
[2021-11-05 09:35] LABS: BLOOD UREA NITROGEN 8.1 mg/dL (7-18); MAGNESIUM 2.2 mg/dL (1.8-2.4)
[2021-11-05 09:37] LABS: CREATININE 0.8 mg/dL (0.55-1.3); PHOSPHOROUS 3.4 mg/dL (2.5-4.9)
[2021-11-05 09:55] LABS: ANISOCYTOSIS 2+; MACROCYTOSIS 2+; OVALOCYTE 1+
[2021-11-05] MEDS: PANTOPRAZOLE SODIUM 40 MG VIAL IVPUSH SCH (09:57)
[2021-11-05] MEDS: EXEMESTANE 25 MG TABLET PO SCH (09:57)
[2021-11-05] MEDS ORDERED: BUPIVACAINE HCL/PF 0.5% (5MG/ML) 10 ML VIAL ONE (11:09)
[2021-11-05] MEDS ORDERED: MIDAZOLAM HCL 2 MG/2 ML SINGLE DOSE VIAL ONE (11:18)
[2021-11-05] MEDS ORDERED: PROPOFOL 20 ML ONE ×3 (11:18→12:28)
[2021-11-05] MEDS ORDERED: SUCCINYLCHOLINE CHLORIDE 200 MG/10 ML SYRINGE ONE (11:18)
[2021-11-05] MEDS ORDERED: ROCURONIUM BROMIDE 100 MG/10 ML VIAL ONE (11:19)
[2021-11-05] MEDS ORDERED: BUPIVACAINE HCL/PF 0.5% (5MG/ML) 10 ML VIAL NR ONE (12:12)
[2021-11-05] MEDS ORDERED: NEOSTIGMINE METHYLSULFATE 0.5 MG/ML - 10 ML MDV ONE (13:03)
[2021-11-05] MEDS ORDERED: ONDANSETRON 4 MG/2 ML VIAL ONE (13:47)
[2021-11-05] MEDS ORDERED: oxyCODONE HCL 5 MG TABLET PO PRN (13:53)
[2021-11-05] MEDS ORDERED: ONDANSETRON 4 MG/2 ML VIAL IVPUSH PRN (13:59)
[2021-11-05] MEDS ORDERED: LACTATED RINGERS SOLUTION 1,000 ML/1,000 ML INFUS.BAG IV SCH (13:59)
[2021-11-05] MEDS: LACTATED RINGERS SOLUTION 1,000 ML/1,000 ML INFUS.BAG IV SCH (16:15)
[2021-11-05] MEDS: oxyCODONE HCL 5 MG TABLET PO PRN (17:45)
[2021-11-05] MEDS: ACETAMINOPHEN 325 MG TABLET (FP) PO PRN (20:01)
[2021-11-05] MEDS: MELATONIN 5 MG TABLETS PO PRN (21:25)
[2021-11-06] MEDS ORDERED: PIPERACILLIN/TAZOBACTAM 3.375 GM VIAL IVPB ONE ×3 (00:08→17:49)
[2021-11-06] MEDS ORDERED: DEXTROSE 5%-WATER - 50 ML IVPB ONE ×3 (00:09→17:50)
[2021-11-06] MEDS: PIPERACILLIN/TAZOB 3.375 GM 3.375 GM in DEXTROSE 5%-WATER - 50 ML IVPB SCH ×3 (01:10→18:53)
[2021-11-06] MEDS: oxyCODONE HCL 5 MG TABLET PO PRN ×2 (07:11→13:44)
[2021-11-06 08:47] LABS: BASO % 0.3 % (0-2.0); EOS % 0.8 % (0-4.5); HEMOGLOBIN 8.7 GM/dL (10.7-15.3); LYMPH % 17.9 % (8-40); MCH 37.7 pg (25.7-33.7); MCHC 33.5 g/dl (32.0-36.0); MEAN CELL VOLUME 112.4 fl (80-96); MEAN PLT VOLUME 6.9 fl (7.5-11.1); PLATELET COUNT 263 10^3/uL (134-434); RBC 2.31 M/mm3 (3.60-5.2); WHITE BLOOD COUNT 3.5 K/mm3 (4.0-10.0)
[2021-11-06 09:12] LABS: CALCIUM 8.9 mg/dL (8.5-10.1)
[2021-11-06 09:14] LABS: BLOOD UREA NITROGEN 3.8 mg/dL (7-18); MAGNESIUM 2.1 mg/dL (1.8-2.4)
[2021-11-06 09:16] LABS: CREATININE 0.9 mg/dL (0.55-1.3); PHOSPHOROUS 3.6 mg/dL (2.5-4.9)
[2021-11-06] MEDS: PANTOPRAZOLE SODIUM 40 MG VIAL IVPUSH SCH (10:38)
[2021-11-06] MEDS: EXEMESTANE 25 MG TABLET PO SCH (10:38)
[2021-11-06] MEDS: ACETAMINOPHEN 325 MG TABLET (FP) PO PRN (11:05)
[2021-11-06] MEDS: MELATONIN 5 MG TABLETS PO PRN (22:24)
[2021-11-07] MEDS ORDERED: PIPERACILLIN/TAZOBACTAM 3.375 GM VIAL IVPB ONE ×4 (01:49→18:01)
[2021-11-07] MEDS ORDERED: DEXTROSE 5%-WATER - 50 ML IVPB ONE ×3 (01:49→18:01)
[2021-11-07] MEDS: PIPERACILLIN/TAZOB 3.375 GM 3.375 GM in DEXTROSE 5%-WATER - 50 ML IVPB SCH ×3 (01:55→18:57)
[2021-11-07 08:55] LABS: HEMATOCRIT 26.1 % (32.4-45.2); HEMOGLOBIN 8.8 GM/dL (10.7-15.3); MCH 37.9 pg (25.7-33.7); MCHC 33.8 g/dl (32.0-36.0); MEAN CELL VOLUME 112.3 fl (80-96); MEAN PLT VOLUME 6.9 fl (7.5-11.1); PLATELET COUNT 267 10^3/uL (134-434); RBC 2.33 M/mm3 (3.60-5.2); RDW 19.1 % (11.6-15.6); WHITE BLOOD COUNT 3.6 K/mm3 (4.0-10.0)
[2021-11-07 09:15] LABS: ALBUMIN 2.9 g/dl (3.4-5.0); BLOOD UREA NITROGEN 8.6 mg/dL (7-18); CALCIUM 8.6 mg/dL (8.5-10.1); MAGNESIUM 1.9 mg/dL (1.8-2.4)
[2021-11-07 09:17] LABS: CREATININE 0.9 mg/dL (0.55-1.3); PHOSPHOROUS 3.7 mg/dL (2.5-4.9)
[2021-11-07 09:19] LABS: BILIRUBIN,TOTAL 0.4 mg/dL (0.2-1); TOT PROT 6.5 g/dl (6.4-8.2)
[2021-11-07] MEDS: PANTOPRAZOLE SODIUM 40 MG VIAL IVPUSH SCH (11:19)
[2021-11-07] MEDS: oxyCODONE HCL 5 MG TABLET PO PRN (11:21)
[2021-11-07] MEDS: EXEMESTANE 25 MG TABLET PO SCH (11:23)
[2021-11-07 11:40] LABS: ANISOCYTOSIS 1+; MACROCYTOSIS 0
[2021-11-07 11:41] LABS: PLATELET ESTIMATE ADEQUATE
[2021-11-07] MEDS: SIMETHICONE 80 MG TAB.CHEW (FP) PO PRN ×2 (13:45→17:12)
[2021-11-07] MEDS ORDERED: SENNOSIDES/DOCUSATE COMBO (SENNA PLUS) TABLET (UD) PO PRN (15:36)
[2021-11-07] MEDS ORDERED: DOCUSATE SODIUM 100 MG CAPSULE (FP) PO SCH (22:00)
[2021-11-08] MEDS ORDERED: DEXTROSE 5%-WATER - 50 ML IVPB ONE ×2 (01:08→10:13)
[2021-11-08] MEDS ORDERED: PIPERACILLIN/TAZOBACTAM 3.375 GM VIAL IVPB ONE ×2 (01:08→10:12)
[2021-11-08] MEDS: PIPERACILLIN/TAZOB 3.375 GM 3.375 GM in DEXTROSE 5%-WATER - 50 ML IVPB SCH ×3 (01:15→18:42)
[2021-11-08 09:43] LABS: HEMATOCRIT 26.8 % (32.4-45.2); MCH 37.7 pg (25.7-33.7); MCHC 33.5 g/dl (32.0-36.0); MEAN CELL VOLUME 112.4 fl (80-96); MEAN PLT VOLUME 6.7 fl (7.5-11.1); PLATELET COUNT 276 10^3/uL (134-434); RBC 2.38 M/mm3 (3.60-5.2); RDW 18.3 % (11.6-15.6); WHITE BLOOD COUNT 2.4 K/mm3 (4.0-10.0)
[2021-11-08 10:08] LABS: BLOOD UREA NITROGEN 8.7 mg/dL (7-18)
[2021-11-08 10:11] LABS: PHOSPHOROUS 3.2 mg/dL (2.5-4.9)
[2021-11-08 10:12] LABS: CREATININE 0.9 mg/dL (0.55-1.3)
[2021-11-08 10:13] LABS: ANISOCYTOSIS 3+; MACROCYTOSIS 3+; OVALOCYTE 1+
[2021-11-08] MEDS: PANTOPRAZOLE SODIUM 40 MG VIAL IVPUSH SCH (10:19)
[2021-11-08] MEDS: EXEMESTANE 25 MG TABLET PO SCH (10:20)
[2021-11-08] MEDS ORDERED: TBO-FILGRASTIM 300 MCG/0.5 ML DISP.SYRINGE SQ ONE (15:00)
[2021-11-08 16:13] VITALS: BP 112/73; PULSE 92; TEMP 99.1
== END 2021-11-08 18:55 | disposition home or self-care (01) | DRG 263 ==
LOC: JER 04:56 → JERBED 10:54 → UNDOADMOB 10:54 → INTOOBSV 11:14 → OBSVTOIN 11:14 → JERBED 13:45 → J8W 17:18 → OBSVTOIN 17:49 → J8W 11-03 18:34
PROVIDERS: ADMIT Internal Medicine; ATTEND Internal Medicine
PROC: 0FT44ZZ Resection of Gallbladder, Percutaneous Endoscopic Approach (ICD-10-PCS; principal; 2021-11-05 13:00)
DX: K80.20 Calculus of gallbladder without cholecystitis without obstruction (principal); C78.7 Secondary malignant neoplasm of liver and intrahepatic bile duct; C79.51 Secondary malignant neoplasm of bone; C50.919 Malignant neoplasm of unspecified site of unspecified female breast; D64.9 Anemia, unspecified; D70.9 Neutropenia, unspecified; K25.9 Gastric ulcer, unspecified as acute or chronic, without hemorrhage or perforation; K80.50 Calculus of bile duct without cholangitis or cholecystitis without obstruction
CPT/HCPCS: 36415; 71045-TC-FY; 74177-TC; 76705-TC; 80048; 80053; 81003; 82607; 82746; 83690; 83735; 84100; 84484; 85025; 85610; 85730; 86850; 86900; 86901; 87040; 87077; 87086; 88304-TC; 93005; 93010; 94010; 94760; 99285-25; C9803-CS; G0378; J1447; Q9967; U0003; U0005

== ENCOUNTER 2022-02-26 20:21 | Inpatient (IN) | payer OTHER ==
[2022-02-26] MEDS ORDERED: ONDANSETRON 4 MG/2 ML VIAL IVPUSH ONE (20:53)
[2022-02-26] MEDS ORDERED: SODIUM CHLORIDE 0.9% 500 ML INFUS.BAG IV ONE (20:53)
[2022-02-26] MEDS ORDERED: ACETAMINOPHEN 1000 MG/100 ML BAG IVPB ONE (21:06)
[2022-02-26] MEDS ORDERED: ONDANSETRON 4 MG/2 ML VIAL ONE (21:17)
[2022-02-26] MEDS ORDERED: ACETAMINOPHEN INJECTION 100 ML IVPB ONE (21:17)
[2022-02-26 21:56] LABS: BASO % 0.1 % (0-2.0); EOS % 0.3 % (0-4.5); HEMATOCRIT 36.9 % (32.4-45.2); HEMOGLOBIN 12.2 GM/dL (10.7-15.3); LYMPH % 5.4 % (8-40); MCH 28.9 pg (25.7-33.7); MCHC 33.2 g/dl (32.0-36.0); MEAN CELL VOLUME 87.2 fl (80-96); MEAN PLT VOLUME 6.6 fl (7.5-11.1); MONO % 5.1 % (3.8-10.2); NEUT % 89.1 % (42.8-82.8); PLATELET COUNT 465 10^3/uL (134-434); RBC 4.23 M/mm3 (3.60-5.2); RDW 17.8 % (11.6-15.6); WHITE BLOOD COUNT 10.2 K/mm3 (4.0-10.0)
[2022-02-26 22:00] LABS: INR 1.03 (0.83-1.09); PROTHROMBIN TIME (PATIENT) 11.9 SEC (9.7-13.0)
[2022-02-26 22:03] LABS: ACTIVATED PTT 29.2 SECONDS (25.2-36.5)
[2022-02-26 22:16] LABS: CALCIUM 10.8 mg/dL (8.5-10.1)
[2022-02-26 22:17] LABS: ALBUMIN 4.4 g/dl (3.4-5.0)
[2022-02-26 22:20] LABS: CREATININE 1.2 mg/dL (0.55-1.3)
[2022-02-26 22:21] LABS: BILIRUBIN,TOTAL 0.7 mg/dL (0.2-1); TOT PROT 9.1 g/dl (6.4-8.2)
[2022-02-26 23:59] LABS: EPI CELLS >36 /uL (0-25.1); HYALINE CASTS 12 /uL (0-3.1); URINE APPEARANCE CLEAR; URINE BACTERIA 6 /uL (0-1359); URINE BILIRUBIN NEGATIVE (NEGATIVE); URINE COLOR YELLOW; URINE GLUCOSE (UA) NEGATIVE (NEGATIVE); URINE KETONE 1+ (NEGATIVE); URINE LEUK ESTERASE NEGATIVE (NEGATIVE); URINE NITRITE NEGATIVE (NEGATIVE); URINE PROTEIN TRACE (NEGATIVE); URINE RBC 21 /uL (0-23.9); URINE UROBILINOGEN 0.2 mg/dL (0.2-1.0); URINE WBC 17 /uL (0-25.8)
[2022-02-27] MEDS ORDERED: PIPERACILLIN/TAZOB 3.375 GM 3.375 GM/50 ML BAG IVPB ONE ×2 (02:21→09:06)
[2022-02-27] MEDS ORDERED: PIPERACILLIN/TAZOB 3.375 GM 3.375 GM in DEXTROSE 5%-WATER - 50 ML IVPB SCH (02:30)
[2022-02-27] MEDS ORDERED: SODIUM CHLORIDE 1,000 ML IV SCH (02:30)
[2022-02-27] MEDS: PIPERACILLIN/TAZOB 3.375 GM 3.375 GM in DEXTROSE 5%-WATER - 50 ML IVPB SCH ×2 (02:30→09:07)
[2022-02-27 08:12] LABS: INR 1.06 (0.83-1.09); PROTHROMBIN TIME (PATIENT) 12.2 SEC (9.7-13.0)
[2022-02-27 08:13] LABS: ACTIVATED PTT 29.1 SECONDS (25.2-36.5)
[2022-02-27 08:19] LABS: BASO % 0.3 % (0-2.0); EOS % 0.8 % (0-4.5); HEMATOCRIT 31.1 % (32.4-45.2); HEMOGLOBIN 10.5 GM/dL (10.7-15.3); LYMPH % 24.3 % (8-40); MCH 29.4 pg (25.7-33.7); MCHC 33.7 g/dl (32.0-36.0); MEAN CELL VOLUME 87.2 fl (80-96); MEAN PLT VOLUME 6.3 fl (7.5-11.1); MONO % 6.9 % (3.8-10.2); NEUT % 67.7 % (42.8-82.8); PLATELET COUNT 358 10^3/uL (134-434); RBC 3.57 M/mm3 (3.60-5.2); RDW 17.8 % (11.6-15.6)
[2022-02-27 08:24] LABS: BILIRUBIN,DIRECT 0.2 mg/dL (0.0-0.2); PHOSPHOROUS 3.6 mg/dL (2.5-4.9)
[2022-02-27 08:25] LABS: BILIRUBIN,TOTAL 0.6 mg/dL (0.2-1); TOT PROT 7.3 g/dl (6.4-8.2)
[2022-02-27 08:30] LABS: ALBUMIN 3.3 g/dl (3.4-5.0)
[2022-02-27] MEDS ORDERED: HEPARIN NA (PORCINE) 5,000 UNITS/ML 1ML VIAL ONE ×3 (09:06→22:56)
[2022-02-27] MEDS: HEPARIN NA (PORCINE) 5,000 UNITS/ML 1ML VIAL SQ SCH ×3 (09:07→23:00)
[2022-02-27] MEDS ORDERED: oxyCODONE HCL 5 MG TABLET PO PRN (15:02)
[2022-02-27] MEDS: SODIUM CHLORIDE 1,000 ML IV SCH (16:04)
[2022-02-27] MEDS ORDERED: CALCIUM 500MG/VIT-D 200 UNITS COMBO TABLET (FP) PO SCH (22:00)
[2022-02-27] MEDS ORDERED: GABAPENTIN 300 MG CAPSULE ONE (22:56)
[2022-02-27] MEDS: GABAPENTIN 300 MG CAPSULE PO SCH (23:00)
[2022-02-28] MEDS ORDERED: HEPARIN NA (PORCINE) 5,000 UNITS/ML 1ML VIAL ONE ×2 (08:01→16:11)
[2022-02-28] MEDS ORDERED: GABAPENTIN 300 MG CAPSULE ONE ×2 (08:01→16:11)
[2022-02-28] MEDS: GABAPENTIN 300 MG CAPSULE PO SCH ×3 (08:10→21:56)
[2022-02-28] MEDS: HEPARIN NA (PORCINE) 5,000 UNITS/ML 1ML VIAL SQ SCH ×3 (08:10→21:56)
[2022-02-28 09:11] LABS: HEMATOCRIT 28.9 % (32.4-45.2); HEMOGLOBIN 9.6 GM/dL (10.7-15.3); MCH 29.1 pg (25.7-33.7); MCHC 33.2 g/dl (32.0-36.0); MEAN CELL VOLUME 87.7 fl (80-96); MEAN PLT VOLUME 6.4 fl (7.5-11.1); PLATELET COUNT 334 10^3/uL (134-434); RDW 17.4 % (11.6-15.6); WHITE BLOOD COUNT 3.5 K/mm3 (4.0-10.0)
[2022-02-28 09:25] LABS: ALBUMIN 3.1 g/dl (3.4-5.0); BLOOD UREA NITROGEN 8.2 mg/dL (7-18); MAGNESIUM 2.1 mg/dL (1.8-2.4)
[2022-02-28 09:27] LABS: BILIRUBIN,DIRECT 0.2 mg/dL (0.0-0.2)
[2022-02-28 09:28] LABS: CREATININE 0.7 mg/dL (0.55-1.3); GAMMA GLUTAMYL TRANSPEPTIDASE 165 U/L (5-85); PHOSPHOROUS 1.9 mg/dL (2.5-4.9)
[2022-02-28 09:29] LABS: BILIRUBIN,TOTAL 0.5 mg/dL (0.2-1); TOT PROT 6.7 g/dl (6.4-8.2)
[2022-02-28 09:32] LABS: SGOT/AST 50 U/L (15-37); SGPT/ALT 82 U/L (13-61)
[2022-02-28 09:33] LABS: CALCIUM 8.1 mg/dL (8.5-10.1)
[2022-02-28] MEDS ORDERED: oxyCODONE HCL 5 MG TABLET ONE (09:51)
[2022-02-28] MEDS ORDERED: PANTOPRAZOLE 40 MG TABLET PO SCH (10:00)
[2022-02-28] MEDS ORDERED: EVEROLIMUS 5 MG PO SCH (10:00)
[2022-02-28] MEDS ORDERED: POLYETHYLENE GLYCOL (HEALTHYLAX) 3350 17 GM PACKET PO SCH (10:00)
[2022-02-28] MEDS ORDERED: oxyCODONE HCL 5 MG TABLET PO ONE (11:30)
[2022-02-28] MEDS ORDERED: POTASSIUM PHOSPHATE 30 MM in SODIUM CHLORIDE 500 ML IVPB ONE (13:30)
[2022-02-28] MEDS: SODIUM CHLORIDE 1,000 ML IV SCH (20:07)
[2022-02-28] MEDS ORDERED: SODIUM CHLORIDE 1,000 ML IV SCH (20:49)
[2022-02-28] MEDS: MELATONIN 5 MG TABLETS PO PRN (21:56)
[2022-02-28 23:01] VITALS: RESP 20; BMI 28.0
[2022-02-28] MEDS: oxyCODONE HCL 5 MG TABLET PO PRN (23:12)
[2022-03-01] MEDS: GABAPENTIN 300 MG CAPSULE PO SCH ×3 (06:35→22:36)
[2022-03-01] MEDS: HEPARIN NA (PORCINE) 5,000 UNITS/ML 1ML VIAL SQ SCH ×2 (06:36→14:18)
[2022-03-01 06:46] LABS: HEMATOCRIT 27.1 % (32.4-45.2); HEMOGLOBIN 9.1 GM/dL (10.7-15.3); MCH 29.1 pg (25.7-33.7); MCHC 33.6 g/dl (32.0-36.0); MEAN CELL VOLUME 86.5 fl (80-96); MEAN PLT VOLUME 6.3 fl (7.5-11.1); PLATELET COUNT 315 10^3/uL (134-434); RBC 3.13 M/mm3 (3.60-5.2); RDW 16.8 % (11.6-15.6); WHITE BLOOD COUNT 4.3 K/mm3 (4.0-10.0)
[2022-03-01 07:12] LABS: BLOOD UREA NITROGEN 7.9 mg/dL (7-18); MAGNESIUM 1.9 mg/dL (1.8-2.4)
[2022-03-01 07:13] LABS: ALBUMIN 2.8 g/dl (3.4-5.0)
[2022-03-01 07:15] LABS: PHOSPHOROUS 2.2 mg/dL (2.5-4.9)
[2022-03-01 07:16] LABS: CREATININE 0.6 mg/dL (0.55-1.3)
[2022-03-01 07:17] LABS: BILIRUBIN,TOTAL 0.4 mg/dL (0.2-1); TOT PROT 6.3 g/dl (6.4-8.2)
[2022-03-01 09:14] LABS: RETICULOCYTES 2.18 % (0.5-1.5)
[2022-03-01] MEDS ORDERED: POTASSIUM PHOSPHATE 30 MM in SODIUM CHLORIDE 500 ML IVPB ONE (09:30)
[2022-03-01] MEDS ORDERED: PANTOPRAZOLE SODIUM 40 MG VIAL IVPUSH SCH (12:00)
[2022-03-01] MEDS: PIPERACILLIN/TAZOB 3.375 GM 3.375 GM in DEXTROSE 5%-WATER - 50 ML IVPB SCH (17:28)
[2022-03-01 21:57] LABS: HEMATOCRIT 27.9 % (32.4-45.2); HEMOGLOBIN 9.3 GM/dL (10.7-15.3); MCH 29.1 pg (25.7-33.7); MCHC 33.5 g/dl (32.0-36.0); MEAN PLT VOLUME 6.4 fl (7.5-11.1); PLATELET COUNT 358 10^3/uL (134-434); RBC 3.21 M/mm3 (3.60-5.2); RDW 17.4 % (11.6-15.6); WHITE BLOOD COUNT 4.3 K/mm3 (4.0-10.0)
[2022-03-01] MEDS: oxyCODONE HCL 5 MG TABLET PO PRN (22:36)
[2022-03-01] MEDS: MELATONIN 5 MG TABLETS PO PRN (22:36)
[2022-03-02] MEDS: PIPERACILLIN/TAZOB 3.375 GM 3.375 GM in DEXTROSE 5%-WATER - 50 ML IVPB SCH ×2 (02:05→09:29)
[2022-03-02] MEDS: GABAPENTIN 300 MG CAPSULE PO SCH ×2 (06:25→14:06)
[2022-03-02 07:35] LABS: BASO % 0.5 % (0-2.0); EOS % 3.7 % (0-4.5); HEMATOCRIT 27.6 % (32.4-45.2); HEMOGLOBIN 9.3 GM/dL (10.7-15.3); LYMPH % 30.8 % (8-40); MCH 29.3 pg (25.7-33.7); MCHC 33.7 g/dl (32.0-36.0); MEAN PLT VOLUME 6.4 fl (7.5-11.1); MONO % 10.7 % (3.8-10.2); NEUT % 54.3 % (42.8-82.8); PLATELET COUNT 337 10^3/uL (134-434); RBC 3.18 M/mm3 (3.60-5.2); RDW 17.4 % (11.6-15.6); WHITE BLOOD COUNT 3.9 K/mm3 (4.0-10.0)
[2022-03-02 07:58] LABS: BLOOD UREA NITROGEN 6.7 mg/dL (7-18); CALCIUM 8.1 mg/dL (8.5-10.1); MAGNESIUM 2.1 mg/dL (1.8-2.4)
[2022-03-02 08:01] LABS: PHOSPHOROUS 3.3 mg/dL (2.5-4.9)
[2022-03-02 08:02] LABS: CREATININE 0.7 mg/dL (0.55-1.3)
[2022-03-02 08:03] LABS: BILIRUBIN,TOTAL 0.6 mg/dL (0.2-1); TOT PROT 6.1 g/dl (6.4-8.2)
[2022-03-02] MEDS ORDERED: PIPERACILLIN/TAZOBACTAM 3.375 GM VIAL IVPB ONE (09:04)
[2022-03-02] MEDS ORDERED: PANTOPRAZOLE 40 MG TABLET PO SCH (10:00)
[2022-03-02 14:45] VITALS: BP 120/77; PULSE 80; TEMP 98.7
[2022-03-03 06:06] LABS: CMV IgM < 30.0 AU/mL (0.0-29.9)
== END 2022-03-02 19:00 | disposition home or self-care (01) | DRG 249 ==
LOC: JER 20:21 → JERBED 02-27 00:32 → J4W 02-28 20:29
PROVIDERS: ADMIT Internal Medicine; ATTEND Internal Medicine
DX: K52.89 Other specified noninfective gastroenteritis and colitis (principal); R94.5 Abnormal results of liver function studies; E83.52 Hypercalcemia; R94.31 Abnormal electrocardiogram [ECG] [EKG]; C50.912 Malignant neoplasm of unspecified site of left female breast; C78.7 Secondary malignant neoplasm of liver and intrahepatic bile duct; C79.51 Secondary malignant neoplasm of bone; D72.829 Elevated white blood cell count, unspecified; E83.39 Other disorders of phosphorus metabolism; D64.9 Anemia, unspecified; R74.01 Elevation of levels of liver transaminase levels; Z87.11 Personal history of peptic ulcer disease
CPT/HCPCS: 36415; 71045-TC-FY; 74177-TC; 76705-TC; 80053; 80061; 80076; 81003; 82248; 82728; 82962; 82977; 83540; 83550; 83605; 83690; 83735; 84100; 84450; 84460; 84466; 84484; 85025; 85027; 85045; 85610; 85730; 86140; 86645; 87040; 87086; 87324; 87449; 93005; 93010; 99285-25; C9803-CS; G6056; J1644; Q9967; U0003; U0005

== ENCOUNTER 2023-05-20 12:42 | Emergency (ER) | payer OTHER ==
[2023-05-20] MEDS ORDERED: METOCLOPRAMIDE HCL INJECTION 10 MG/2 ML VIAL IVPUSH ONE (13:38)
[2023-05-20] MEDS ORDERED: ACETAMINOPHEN 1000 MG/100 ML BAG IVPB ONE (13:38)
[2023-05-20 13:45] LABS: HEMOGLOBIN 9.6 GM/dL (10.7-15.3); MCH 24.2 pg (25.7-33.7); MCHC 31.1 g/dl (32.0-36.0); MEAN CELL VOLUME 78.1 fl (80-96); MEAN PLT VOLUME 6.2 fl (7.5-11.1); PLATELET COUNT 433 10^3/uL (134-434); RBC 3.97 M/mm3 (3.60-5.2); RDW 17.6 % (11.6-15.6)
[2023-05-20 13:52] LABS: INR 0.96 (0.83-1.09); PROTHROMBIN TIME (PATIENT) 11.1 SEC (9.7-13.0)
[2023-05-20 13:57] VITALS: TEMP 97; BMI 29.2
[2023-05-20] MEDS ORDERED: METOCLOPRAMIDE HCL INJECTION 10 MG/2 ML VIAL ONE (14:00)
[2023-05-20] MEDS ORDERED: ACETAMINOPHEN INJECTION 100 ML IVPB ONE (14:00)
[2023-05-20] MEDS ORDERED: methylPREDNISolone NA SUCC 40 MG/1 ML VIAL IVPUSH ONE (14:07)
[2023-05-20 14:09] LABS: POTASSIUM 4.1 mmol/L (3.5-5.1)
[2023-05-20 14:11] LABS: ALBUMIN 3.4 g/dl (3.4-5.0); BLOOD UREA NITROGEN 8.4 mg/dL (7-18); CALCIUM 8.6 mg/dL (8.5-10.1)
[2023-05-20 14:14] LABS: CREATININE 0.7 mg/dL (0.55-1.3)
[2023-05-20 14:16] LABS: BILIRUBIN,TOTAL 0.4 mg/dL (0.2-1); TOT PROT 7.7 g/dl (6.4-8.2)
[2023-05-20] MEDS ORDERED: MAG HYDROX/AL HYDROX/SIMETH 30 ML UNIT-DOSE CUP PO ONE (16:51)
[2023-05-20 17:10] LABS: N-TERMINAL BNP 119.1 pg/ml (5-125)
[2023-05-20] MEDS ORDERED: MAG HYDROX/AL HYDROX/SIMETH 30 ML UNIT-DOSE CUP ONE (17:31)
[2023-05-20 19:05] VITALS: BP 134/72; PULSE 89; RESP 20
== END 2023-05-20 19:06 | disposition home or self-care (01) ==
LOC: JER 12:42
PROC: 3E033NZ Introduction of Analgesics, Hypnotics, Sedatives into Peripheral Vein, Percutaneous Approach (ICD-10-PCS; principal; 2023-05-20)
PROC: 3E033GC Introduction of Other Therapeutic Substance into Peripheral Vein, Percutaneous Approach (ICD-10-PCS; 2023-05-20)
DX: R07.9 Chest pain, unspecified (principal); M54.50 Low back pain, unspecified; R10.13 Epigastric pain; R11.0 Nausea; R06.02 Shortness of breath; M54.6 Pain in thoracic spine; Z20.822 Contact with and (suspected) exposure to COVID-19
CPT/HCPCS: 0241U-QW; 36415; 71275-TC; 76705-TC; 80053; 83690; 83880; 84484; 85027; 85379; 85610; 93005; 93010; 99285-25

== ENCOUNTER 2023-08-13 22:55 | Emergency (ER) | payer OTHER ==
[2023-08-13 23:05] VITALS: BP 130/85; PULSE 106; RESP 20; TEMP 97.4; BMI 24.0
[2023-08-13] MEDS ORDERED: ACETAMINOPHEN 1000 MG/100 ML BAG IVPB ONE (23:53)
[2023-08-13] MEDS ORDERED: LACTATED RINGERS SOLUTION 1000 ML INFUS.BAG IV ONE (23:53)
[2023-08-13] MEDS ORDERED: DICYCLOMINE HCL 20 MG/2 ML AMPUL IM ONE (23:55)
[2023-08-13] MEDS ORDERED: ACETAMINOPHEN INJECTION 100 ML IVPB ONE (23:58)
[2023-08-14] MEDS ORDERED: morphine CARPU-JECT 2 MG/1 ML DISP.SYRIN IVPUSH ONE (00:08)
[2023-08-14 00:13] LABS: BASO % 0.3 % (0-2.0); EOS % 0.8 % (0-4.5); HEMATOCRIT 32.8 % (32.4-45.2); HEMOGLOBIN 10.3 GM/dL (10.7-15.3); LYMPH % 13.8 % (8-40); MCH 24.1 pg (25.7-33.7); MCHC 31.4 g/dl (32.0-36.0); MEAN CELL VOLUME 76.7 fl (80-96); MEAN PLT VOLUME 6.1 fl (7.5-11.1); MONO % 5.1 % (3.8-10.2); PLATELET COUNT 624 10^3/uL (134-434); RBC 4.28 M/mm3 (3.60-5.2); RDW 18.8 % (11.6-15.6); WHITE BLOOD COUNT 8.9 K/mm3 (4.0-10.0)
[2023-08-14] MEDS ORDERED: FAMOTIDINE 20 MG TABLET PO ONE (00:28)
[2023-08-14] MEDS ORDERED: SIMETHICONE 80 MG TAB.CHEW (FP) PO ONE (00:28)
[2023-08-14 00:31] LABS: POTASSIUM 4.2 mmol/L (3.5-5.1)
[2023-08-14 00:35] LABS: CALCIUM 9.5 mg/dL (8.5-10.1)
[2023-08-14 00:36] LABS: ALBUMIN 3.8 g/dl (3.4-5.0); MAGNESIUM 1.9 mg/dL (1.8-2.4)
[2023-08-14 00:38] LABS: CREATININE 0.7 mg/dL (0.55-1.3); PHOSPHOROUS 3.2 mg/dL (2.5-4.9)
[2023-08-14 00:40] LABS: BILIRUBIN,TOTAL 0.3 mg/dL (0.2-1)
[2023-08-14 00:41] LABS: TOT PROT 8.2 g/dl (6.4-8.2)
[2023-08-14] MEDS ORDERED: FAMOTIDINE 20 MG TABLET ONE (00:43)
[2023-08-14] MEDS ORDERED: SIMETHICONE 80 MG TAB.CHEW (FP) ONE (00:43)
[2023-08-14] MEDS ORDERED: ONDANSETRON *ODT* 4 MG TABLET SL ONE (00:51)
[2023-08-14] MEDS ORDERED: ONDANSETRON *ODT* 4 MG TABLET ONE (00:51)
[2023-08-14] MEDS ORDERED: KETOROLAC TROMETHAMINE 30 MG/1 ML VIAL IVPUSH ONE (01:42)
[2023-08-14] MEDS ORDERED: KETOROLAC TROMETHAMINE 30 MG/1 ML VIAL ONE (01:59)
[2023-08-14 02:20] LABS: URINE APPEARANCE CLEAR; URINE BILIRUBIN NEGATIVE (NEGATIVE); URINE COLOR YELLOW; URINE GLUCOSE (UA) NEGATIVE (NEGATIVE); URINE KETONE NEGATIVE (NEGATIVE); URINE LEUK ESTERASE NEGATIVE (NEGATIVE); URINE NITRITE NEGATIVE (NEGATIVE); URINE PROTEIN NEGATIVE (NEGATIVE); URINE UROBILINOGEN 0.2 mg/dL (0.2-1.0)
== END 2023-08-14 02:45 | disposition home or self-care (01) ==
LOC: JER 22:55
PROC: 3E033NZ Introduction of Analgesics, Hypnotics, Sedatives into Peripheral Vein, Percutaneous Approach (ICD-10-PCS; principal; 2023-08-14)
PROC: 3E0333Z Introduction of Anti-inflammatory into Peripheral Vein, Percutaneous Approach (ICD-10-PCS; 2023-08-14)
PROC: 3E033GC Introduction of Other Therapeutic Substance into Peripheral Vein, Percutaneous Approach (ICD-10-PCS; 2023-08-14)
PROC: 3E023GC Introduction of Other Therapeutic Substance into Muscle, Percutaneous Approach (ICD-10-PCS; 2023-08-14)
DX: C22.9 Malignant neoplasm of liver, not specified as primary or secondary (principal); R10.30 Lower abdominal pain, unspecified; R00.0 Tachycardia, unspecified; R19.7 Diarrhea, unspecified; R11.0 Nausea
CPT/HCPCS: 36415; 80053; 81003; 83605; 83735; 84100; 85025; 86850; 86900; 86901; 87086; 99284-25; J0131; Q0162

== ENCOUNTER 2023-10-13 20:20 | Inpatient (IN) | payer OTHER ==
[2023-10-13 21:05] LABS: BASO % 0.9 % (0-2.0); EOS % 0.8 % (0-4.5); HEMATOCRIT 26.1 % (32.4-45.2); HEMOGLOBIN 8.2 GM/dL (10.7-15.3); MCH 22.9 pg (25.7-33.7); MCHC 31.5 g/dl (32.0-36.0); MEAN CELL VOLUME 72.9 fl (80-96); MEAN PLT VOLUME 6.1 fl (7.5-11.1); MONO % 4.9 % (3.8-10.2); NEUT % 83.4 % (42.8-82.8); PLATELET COUNT 658 10^3/uL (134-434); RBC 3.58 M/mm3 (3.60-5.2); RDW 19.3 % (11.6-15.6); WHITE BLOOD COUNT 12.1 K/mm3 (4.0-10.0)
[2023-10-13 21:08] LABS: EPI CELLS 25 /uL (0-25.1); HYALINE CASTS 2 /uL (0-3.1); PH,URINE 6.5 (5.0-8.0); URINE APPEARANCE CLEAR; URINE BACTERIA 30 /uL (0-1359); URINE BILIRUBIN NEGATIVE (NEGATIVE); URINE COLOR YELLOW; URINE GLUCOSE (UA) NEGATIVE (NEGATIVE); URINE KETONE NEGATIVE (NEGATIVE); URINE LEUK ESTERASE TRACE (NEGATIVE); URINE NITRITE NEGATIVE (NEGATIVE); URINE PROTEIN TRACE (NEGATIVE); URINE RBC 34 /uL (0-23.9); URINE UROBILINOGEN 0.2 mg/dL (0.2-1.0); URINE WBC 20 /uL (0-25.8)
[2023-10-13 21:26] LABS: POTASSIUM 4.1 mmol/L (3.5-5.1)
[2023-10-13 21:28] LABS: CALCIUM 9.2 mg/dL (8.5-10.1)
[2023-10-13 21:29] LABS: ALBUMIN 3.1 g/dl (3.4-5.0); BLOOD UREA NITROGEN 12.9 mg/dL (7-18)
[2023-10-13 21:32] LABS: CREATININE 0.7 mg/dL (0.55-1.3)
[2023-10-13 21:33] LABS: BILIRUBIN,TOTAL 0.4 mg/dL (0.2-1); TOT PROT 7.3 g/dl (6.4-8.2)
[2023-10-13] MEDS ORDERED: MAG HYDROX/AL HYDROX/SIMETH 30 ML UNIT-DOSE CUP ONE (22:43)
[2023-10-13] MEDS ORDERED: ACETAMINOPHEN INJECTION 100 ML IVPB ONE (22:43)
[2023-10-13] MEDS ORDERED: FAMOTIDINE 20 MG/50 ML IVPB 20 MG/50 ML MG IVPB ONE (22:43)
[2023-10-13] MEDS: MAG HYDROX/AL HYDROX/SIMETH -MYLANTA- ORAL SUSPENSION PO ONE (22:50)
[2023-10-13] MEDS: SODIUM CHLORIDE 0.9% 500 ML INFUS.BAG IV ONE (22:51)
[2023-10-13] MEDS: ACETAMINOPHEN 1000 MG/100 ML BAG IVPB ONE (22:51)
[2023-10-13] MEDS: FAMOTIDINE 20 MG/50 ML IVPB 20 MG/50 ML MG IVPB ONE (22:51)
[2023-10-13] MEDS ORDERED: morphine SULFATE 4 MG/ML VIAL ONE (23:27)
[2023-10-13] MEDS: morphine SULFATE 4 MG/ML VIAL IVPUSH ONE (23:32)
[2023-10-14] MEDS ORDERED: morphine SULFATE 4 MG/ML VIAL ONE (01:56)
[2023-10-14] MEDS: morphine CARPU-JECT 4 MG/1 ML DISP.SYRIN IVPUSH ONE (02:15)
[2023-10-14] MEDS: SODIUM CHLORIDE 1,000 ML IV SCH ×2 (04:00→04:32)
[2023-10-14 06:29] VITALS: BMI 24.0
[2023-10-14] MEDS: ACETAMINOPHEN 1000 MG/100 ML BAG IVPB PRN (08:54)
[2023-10-14 09:14] LABS: BASO % 0.6 % (0-2.0); HEMATOCRIT 22.7 % (32.4-45.2); HEMOGLOBIN 7.1 GM/dL (10.7-15.3); LYMPH % 17.3 % (8-40); MCH 23.4 pg (25.7-33.7); MCHC 31.5 g/dl (32.0-36.0); MEAN CELL VOLUME 74.4 fl (80-96); MEAN PLT VOLUME 6.2 fl (7.5-11.1); MONO % 6.6 % (3.8-10.2); NEUT % 74.5 % (42.8-82.8); PLATELET COUNT 545 10^3/uL (134-434); RBC 3.05 M/mm3 (3.60-5.2); RDW 18.6 % (11.6-15.6); WHITE BLOOD COUNT 6.9 K/mm3 (4.0-10.0)
[2023-10-14 09:33] LABS: POTASSIUM 4.2 mmol/L (3.5-5.1)
[2023-10-14 09:35] LABS: CALCIUM 8.3 mg/dL (8.5-10.1)
[2023-10-14 09:36] LABS: ALBUMIN 2.6 g/dl (3.4-5.0); BLOOD UREA NITROGEN 7.2 mg/dL (7-18); MAGNESIUM 1.9 mg/dL (1.8-2.4)
[2023-10-14 09:38] LABS: IRON SERUM 30 ug/dL (50-175); TOTAL IRON BINDING CAPACITY 440 ug/dL (250-450)
[2023-10-14 09:39] LABS: CREATININE 0.6 mg/dL (0.55-1.3); PHOSPHOROUS 2.4 mg/dL (2.5-4.9)
[2023-10-14 09:40] LABS: BILIRUBIN,TOTAL 0.4 mg/dL (0.2-1); TOT PROT 6.2 g/dl (6.4-8.2)
[2023-10-14] MEDS: PANTOPRAZOLE SODIUM 40 MG VIAL IVPUSH SCH (09:46)
[2023-10-14] MEDS: ENOXAPARIN NA (PORCINE) 40 MG/0.4 ML DISP.SYRIN SQ SCH (09:46)
[2023-10-15 10:19] LABS: BASO % 0.7 % (0-2.0); EOS % 1.1 % (0-4.5); HEMATOCRIT 22.4 % (32.4-45.2); MCH 23.7 pg (25.7-33.7); MCHC 31.1 g/dl (32.0-36.0); MEAN CELL VOLUME 76.4 fl (80-96); MEAN PLT VOLUME 6.5 fl (7.5-11.1); MONO % 4.6 % (3.8-10.2); NEUT % 80.6 % (42.8-82.8); PLATELET COUNT 539 10^3/uL (134-434); RBC 2.94 M/mm3 (3.60-5.2); RDW 19.3 % (11.6-15.6); WHITE BLOOD COUNT 7.5 K/mm3 (4.0-10.0)
[2023-10-15 10:43] LABS: POTASSIUM 3.8 mmol/L (3.5-5.1)
[2023-10-15 10:48] LABS: BLOOD UREA NITROGEN 5.5 mg/dL (7-18); CALCIUM 7.9 mg/dL (8.5-10.1)
[2023-10-15 10:49] LABS: ALBUMIN 2.6 g/dl (3.4-5.0)
[2023-10-15 10:51] LABS: CREATININE 0.5 mg/dL (0.55-1.3)
[2023-10-15 10:53] LABS: BILIRUBIN,TOTAL 0.3 mg/dL (0.2-1); TOT PROT 5.9 g/dl (6.4-8.2)
[2023-10-15] MEDS: PANTOPRAZOLE SODIUM 40 MG VIAL IVPUSH SCH (23:09)
[2023-10-16 09:18] LABS: BASO % 0.4 % (0-2.0); EOS % 0.5 % (0-4.5); HEMATOCRIT 24.3 % (32.4-45.2); HEMOGLOBIN 7.4 GM/dL (10.7-15.3); LYMPH % 16.3 % (8-40); MCHC 30.3 g/dl (32.0-36.0); MEAN CELL VOLUME 76.1 fl (80-96); MEAN PLT VOLUME 6.4 fl (7.5-11.1); MONO % 7.4 % (3.8-10.2); NEUT % 75.4 % (42.8-82.8); PLATELET COUNT 581 10^3/uL (134-434); RDW 18.6 % (11.6-15.6); WHITE BLOOD COUNT 7.1 K/mm3 (4.0-10.0)
[2023-10-16 10:09] LABS: ALBUMIN 2.8 g/dl (3.4-5.0); BILIRUBIN,TOTAL 0.4 mg/dL (0.2-1); BLOOD UREA NITROGEN 6.1 mg/dL (7-18); CALCIUM 8.3 mg/dL (8.5-10.1); CREATININE 0.6 mg/dL (0.55-1.3); POTASSIUM 4.2 mmol/L (3.5-5.1); TOT PROT 6.5 g/dl (6.4-8.2)
[2023-10-16] MEDS ORDERED: DEXTROSE 50%-WATER - 25 GM/50 ML VIAL IVPUSH ONE (10:24)
[2023-10-16] MEDS: DEXTROSE 5%-LACTATED RINGERS 1,000 ML IV SCH (11:15)
[2023-10-16] MEDS: DEXTROSE 50%-WATER 25 GM/50 ML DISP.SYRIN IVPUSH ONE (12:12)
[2023-10-16] MEDS: IRON SUCROSE INJECTION 200 MG in SODIUM CHLORIDE 100 ML IVPB ONE (16:30)
[2023-10-16] MEDS: FERROUS SO4 325 MG TABLET (FP) PO SCH (17:45)
[2023-10-16] MEDS: MELATONIN 5 MG TABLETS PO ONE (22:22)
[2023-10-16] MEDS: POLYETHYLENE GLYCOL (HEALTHYLAX) 3350 17 GM PACKET PO SCH (22:23)
[2023-10-17] MEDS ORDERED: IRON SUCROSE INJECTION 200 MG in SODIUM CHLORIDE 100 ML IVPB ONE (09:00)
[2023-10-17 09:15] LABS: HEMATOCRIT 24.6 % (32.4-45.2); HEMOGLOBIN 7.6 GM/dL (10.7-15.3); MCH 22.9 pg (25.7-33.7); MCHC 31.1 g/dl (32.0-36.0); MEAN CELL VOLUME 73.7 fl (80-96); MEAN PLT VOLUME 6.2 fl (7.5-11.1); PLATELET COUNT 574 10^3/uL (134-434); RBC 3.33 M/mm3 (3.60-5.2); WHITE BLOOD COUNT 6.4 K/mm3 (4.0-10.0)
[2023-10-17 09:41] LABS: POTASSIUM 3.6 mmol/L (3.5-5.1)
[2023-10-17 09:44] LABS: CALCIUM 8.8 mg/dL (8.5-10.1)
[2023-10-17 09:45] LABS: BLOOD UREA NITROGEN 3.9 mg/dL (7-18)
[2023-10-17 09:48] LABS: CREATININE 0.6 mg/dL (0.55-1.3)
[2023-10-17 09:50] LABS: BILIRUBIN,TOTAL 0.3 mg/dL (0.2-1)
[2023-10-17] MEDS: ACETAMINOPHEN 325 MG TABLET (FP) PO PRN (13:56)
[2023-10-17] MEDS: LORATADINE 10 MG TABLET PO SCH (13:56)
[2023-10-17 20:01] LABS: EPI CELLS 2 /uL (0-25.1); HYALINE CASTS 0 /uL (0-3.1); PH,URINE 6.5 (5.0-8.0); URINE APPEARANCE CLEAR; URINE BACTERIA 1 /uL (0-1359); URINE BILIRUBIN NEGATIVE (NEGATIVE); URINE COLOR YELLOW; URINE GLUCOSE (UA) NEGATIVE (NEGATIVE); URINE KETONE NEGATIVE (NEGATIVE); URINE LEUK ESTERASE NEGATIVE (NEGATIVE); URINE NITRITE NEGATIVE (NEGATIVE); URINE PROTEIN NEGATIVE (NEGATIVE); URINE RBC 6 /uL (0-23.9); URINE UROBILINOGEN 0.2 mg/dL (0.2-1.0); URINE WBC 2 /uL (0-25.8)
[2023-10-18 10:08] LABS: HEMOGLOBIN 7.4 GM/dL (10.7-15.3); MCH 23.6 pg (25.7-33.7); MCHC 32.3 g/dl (32.0-36.0); MEAN PLT VOLUME 6.5 fl (7.5-11.1); PLATELET COUNT 538 10^3/uL (134-434); RBC 3.15 M/mm3 (3.60-5.2); RDW 19.2 % (11.6-15.6); WHITE BLOOD COUNT 4.8 K/mm3 (4.0-10.0)
[2023-10-18 10:39] LABS: POTASSIUM 3.2 mmol/L (3.5-5.1)
[2023-10-18 10:43] LABS: CALCIUM 8.7 mg/dL (8.5-10.1)
[2023-10-18 10:44] LABS: ALBUMIN 2.9 g/dl (3.4-5.0); BLOOD UREA NITROGEN 5.1 mg/dL (7-18)
[2023-10-18 10:47] LABS: CREATININE 0.8 mg/dL (0.55-1.3)
[2023-10-18 10:49] LABS: BILIRUBIN,TOTAL 0.3 mg/dL (0.2-1); TOT PROT 6.8 g/dl (6.4-8.2)
[2023-10-18] MEDS: guaiFENesin 200 MG/10 ML 10 ML UNIT-DOSE CUPS PO ONE (11:37)
[2023-10-18 14:16] VITALS: BP 128/78; PULSE 102; RESP 20; TEMP 98.8
== END 2023-10-18 17:23 | disposition home or self-care (01) | DRG 247 ==
LOC: JER 20:20 → JERBED 10-14 02:52 → J5S 10-14 05:24
PROVIDERS: ADMIT Internal Medicine; ATTEND Internal Medicine
DX: K56.600 Partial intestinal obstruction, unspecified as to cause (principal); K25.9 Gastric ulcer, unspecified as acute or chronic, without hemorrhage or perforation; T39.015A Adverse effect of aspirin, initial encounter; Z87.11 Personal history of peptic ulcer disease; D50.9 Iron deficiency anemia, unspecified; R50.9 Fever, unspecified; Z85.3 Personal history of malignant neoplasm of breast
CPT/HCPCS: 0241U-QW; 36415; 71045-TC-FY; 74018-TC-FY; 74177-TC; 80053; 81003; 82272; 83540; 83550; 83690; 83735; 84100; 84484; 85025; 85027; 85045; 87040; 87086; 93005; 93010; 99285-25; J0131; Q9967

== ENCOUNTER 2023-10-21 13:44 | Emergency (ER) | payer OTHER ==
[2023-10-21 14:07] VITALS: BMI 23.7
[2023-10-21 16:46] LABS: EOS % 0.1 % (0-4.5); HEMATOCRIT 25.8 % (32.4-45.2); HEMOGLOBIN 7.9 GM/dL (10.7-15.3); LYMPH % 27.6 % (8-40); MCHC 30.7 g/dl (32.0-36.0); MEAN CELL VOLUME 74.8 fl (80-96); MEAN PLT VOLUME 6.6 fl (7.5-11.1); MONO % 9.8 % (3.8-10.2); NEUT % 61.5 % (42.8-82.8); PLATELET COUNT 535 10^3/uL (134-434); RBC 3.44 M/mm3 (3.60-5.2); RDW 20.7 % (11.6-15.6); WHITE BLOOD COUNT 5.8 K/mm3 (4.0-10.0)
[2023-10-21 16:50] LABS: INR 1.1 (0.83-1.09); PROTHROMBIN TIME (PATIENT) 12.7 SEC (9.7-13.0)
[2023-10-21 16:53] LABS: ACTIVATED PTT 31.3 SECONDS (25.2-36.5)
[2023-10-21 16:59] LABS: VENOUS O2 SATURATION 45.7 % (70-80); VENOUS PCO2 48.2 mmHg (38-52); VENOUS PH 7.389 (7.310-7.410)
[2023-10-21 17:03] LABS: POTASSIUM 3.8 mmol/L (3.5-5.1)
[2023-10-21 17:05] LABS: CALCIUM 9.3 mg/dL (8.5-10.1)
[2023-10-21 17:06] LABS: BLOOD UREA NITROGEN 7.1 mg/dL (7-18)
[2023-10-21 17:09] LABS: CREATININE 0.7 mg/dL (0.55-1.3)
[2023-10-21 17:10] LABS: BILIRUBIN,TOTAL 0.3 mg/dL (0.2-1); TOT PROT 7.2 g/dl (6.4-8.2)
[2023-10-21] MEDS ORDERED: OSELTAMIVIR PHOSPHATE 75 MG CAPSULE ONE (17:24)
[2023-10-21] MEDS: OSELTAMIVIR PHOSPHATE 75 MG CAPSULE PO ONE (17:38)
[2023-10-21 17:46] VITALS: BP 133/76; PULSE 98; RESP 18
[2023-10-21 17:48] VITALS: TEMP 99.7
[2023-10-21] MEDS: SODIUM CHLORIDE 0.9% 500 ML INFUS.BAG IV ONE (18:34)
== END 2023-10-21 18:45 | disposition home or self-care (01) ==
LOC: JER 13:44
DX: J10.1 Influenza due to other identified influenza virus with other respiratory manifestations (principal); R10.9 Unspecified abdominal pain; R50.9 Fever, unspecified; R19.7 Diarrhea, unspecified; R00.0 Tachycardia, unspecified; R05.9 Cough, unspecified; R11.10 Vomiting, unspecified; Z20.822 Contact with and (suspected) exposure to COVID-19
CPT/HCPCS: 0241U-QW; 36415; 71045-TC-FY; 80053; 82803; 83605; 84484; 85025; 85610; 85730; 86850; 86900; 86901; 87040; 93005; 93010; 99285-25

== ENCOUNTER 2024-08-03 07:39 | Inpatient (IN) | payer OTHER ==
[2024-08-03 07:59] VITALS: BMI 24.0
[2024-08-03] MEDS ORDERED: ACETAMINOPHEN INJECTION 100 ML ONE ×2 (08:56→14:13)
[2024-08-03] MEDS ORDERED: morphine SULFATE 4 MG/ML VIAL ONE (08:56)
[2024-08-03] MEDS ORDERED: ONDANSETRON 4 MG/2 ML VIAL ONE (09:23)
[2024-08-03] MEDS: SODIUM CHLORIDE 0.9% 500 ML INFUS.BAG IV ONE (09:43)
[2024-08-03] MEDS: morphine CARPU-JECT 4 MG/1 ML DISP.SYRIN IVPUSH ONE (09:43)
[2024-08-03] MEDS: ONDANSETRON 4 MG/2 ML VIAL IVPUSH ONE (09:44)
[2024-08-03] MEDS: ACETAMINOPHEN 1000 MG/100 ML BAG IVPB ONE ×2 (09:44→14:18)
[2024-08-03 09:49] LABS: BASO % 0.2 % (0-2.0); EOS % 0.5 % (0-4.5); HEMATOCRIT 38.7 % (32.4-45.2); HEMOGLOBIN 13.6 GM/dL (10.7-15.3); MCH 39.1 pg (25.7-33.7); MCHC 35.1 g/dl (32.0-36.0); MEAN CELL VOLUME 111.4 fl (80-96); MEAN PLT VOLUME 6.8 fl (7.5-11.1); NEUT % 80.3 % (42.8-82.8); PLATELET COUNT 411 10^3/uL (134-434); RBC 3.48 M/mm3 (3.60-5.2); RDW 20.9 % (11.6-15.6); WHITE BLOOD COUNT 8.3 K/mm3 (4.0-10.0)
[2024-08-03 10:14] LABS: CHLORIDE 98 mmol/L (98-107); SODIUM 133 mmol/L (136-145)
[2024-08-03 10:16] LABS: ALBUMIN 4.1 g/dl (3.4-5.0); BLOOD UREA NITROGEN 10.4 mg/dL (7-18); CALCIUM 10.2 mg/dL (8.5-10.1); CO2 27 mmol/L (21-32); GLUCOSE,RANDOM 108 mg/dL (74-106)
[2024-08-03 10:17] LABS: ANION GAP 8 mmol/L (4-13); POTASSIUM 7.2 mmol/L (3.5-5.1)
[2024-08-03 10:19] LABS: CREATININE 0.7 mg/dL (0.55-1.3); SGOT/AST 79 U/L (15-37); SGPT/ALT 32 U/L (13-61)
[2024-08-03 10:21] LABS: TOT PROT 8.2 g/dl (6.4-8.2)
[2024-08-03 10:22] LABS: ALK PHOS 151 U/L (45-117); BILIRUBIN,TOTAL 1.3 mg/dL (0.2-1)
[2024-08-03 11:22] LABS: ANISOCYTOSIS 2+; MACROCYTOSIS 2+
[2024-08-03 11:31] LABS: URINE APPEARANCE CLEAR; URINE BILIRUBIN NEGATIVE (NEGATIVE); URINE COLOR YELLOW; URINE GLUCOSE (UA) NEGATIVE (NEGATIVE); URINE KETONE TRACE (NEGATIVE); URINE LEUK ESTERASE NEGATIVE (NEGATIVE); URINE NITRITE NEGATIVE (NEGATIVE); URINE PROTEIN TRACE (NEGATIVE); URINE UROBILINOGEN 0.2 mg/dL (0.2-1.0)
[2024-08-03 12:15] LABS: POTASSIUM 4.1 mmol/L (3.5-5.1)
[2024-08-03 12:17] LABS: ALBUMIN 3.3 g/dl (3.4-5.0); BLOOD UREA NITROGEN 9.9 mg/dL (7-18); CALCIUM 9.1 mg/dL (8.5-10.1)
[2024-08-03 12:20] LABS: CREATININE 0.6 mg/dL (0.55-1.3)
[2024-08-03 12:22] LABS: BILIRUBIN,TOTAL 0.8 mg/dL (0.2-1); TOT PROT 6.5 g/dl (6.4-8.2)
[2024-08-03] MEDS ORDERED: ONDANSETRON *ODT* 4 MG TABLET SL PRN (18:40)
[2024-08-04] MEDS: ACETAMINOPHEN 1000 MG/100 ML BAG IVPB PRN (01:03)
[2024-08-04 05:29] VITALS: RESP 18
[2024-08-04] MEDS: DEXTROSE 5%-LACTATED RINGERS 1,000 ML IV SCH (08:43)
[2024-08-04 09:16] LABS: HEMATOCRIT 31.6 % (32.4-45.2); HEMOGLOBIN 10.9 GM/dL (10.7-15.3); MCH 38.8 pg (25.7-33.7); MCHC 34.4 g/dl (32.0-36.0); MEAN CELL VOLUME 112.6 fl (80-96); MEAN PLT VOLUME 6.2 fl (7.5-11.1); PLATELET COUNT 316 10^3/uL (134-434); RBC 2.81 M/mm3 (3.60-5.2); RDW 20.8 % (11.6-15.6); WHITE BLOOD COUNT 3.8 K/mm3 (4.0-10.0)
[2024-08-04 09:39] LABS: POTASSIUM 4.9 mmol/L (3.5-5.1)
[2024-08-04 09:45] LABS: BLOOD UREA NITROGEN 8.9 mg/dL (7-18); CALCIUM 9.1 mg/dL (8.5-10.1)
[2024-08-04 09:48] LABS: CREATININE 0.5 mg/dL (0.55-1.3)
[2024-08-04 09:50] LABS: PHOSPHOROUS 3.8 mg/dL (2.5-4.9)
[2024-08-04] MEDS ORDERED: CAPECITABINE 500 MG PO SCH (22:00)
[2024-08-05 03:17] VITALS: BP 100/71; PULSE 83; TEMP 98.6
[2024-08-05] MEDS: POLYETHYLENE GLYCOL (HEALTHYLAX) 3350 17 GM PACKET PO ONE (08:59)
[2024-08-05] MEDS: FAMOTIDINE 20 MG TABLET PO SCH (09:32)
[2024-08-05 09:45] LABS: BASO % 0.6 % (0-2.0); EOS % 3.1 % (0-4.5); HEMOGLOBIN 11.7 GM/dL (10.7-15.3); LYMPH % 37.6 % (8-40); MCH 38.2 pg (25.7-33.7); MCHC 33.5 g/dl (32.0-36.0); MEAN CELL VOLUME 114.1 fl (80-96); MEAN PLT VOLUME 6.1 fl (7.5-11.1); MONO % 10.7 % (3.8-10.2); PLATELET COUNT 362 10^3/uL (134-434); RBC 3.07 M/mm3 (3.60-5.2); RDW 21.1 % (11.6-15.6); WHITE BLOOD COUNT 4.3 K/mm3 (4.0-10.0)
[2024-08-05 09:50] LABS: ADD RBC MORPHOLOGY YES
[2024-08-05 10:34] LABS: CALCIUM 9.5 mg/dL (8.5-10.1)
[2024-08-05 10:35] LABS: ALBUMIN 3.5 g/dl (3.4-5.0); MAGNESIUM 2.2 mg/dL (1.8-2.4)
[2024-08-05 10:38] LABS: CREATININE 0.6 mg/dL (0.55-1.3); PHOSPHOROUS 3.5 mg/dL (2.5-4.9)
[2024-08-05 10:39] LABS: BILIRUBIN,TOTAL 0.8 mg/dL (0.2-1); TOT PROT 6.7 g/dl (6.4-8.2)
== END 2024-08-05 11:52 | disposition home or self-care (01) | DRG 247 ==
LOC: JER 07:39 → JERBED 17:21 → OBSVTOIN 18:37 → J6S 08-04 00:29
PROVIDERS: ADMIT Internal Medicine; ATTEND Internal Medicine
DX: K56.600 Partial intestinal obstruction, unspecified as to cause (principal); C78.7 Secondary malignant neoplasm of liver and intrahepatic bile duct; C79.51 Secondary malignant neoplasm of bone; C50.919 Malignant neoplasm of unspecified site of unspecified female breast; D64.9 Anemia, unspecified; K27.9 Peptic ulcer, site unspecified, unspecified as acute or chronic, without hemorrhage or perforation; K21.9 Gastro-esophageal reflux disease without esophagitis; K76.0 Fatty (change of) liver, not elsewhere classified; R10.30 Lower abdominal pain, unspecified
CPT/HCPCS: 36415; 71045-TC-FY; 74177-TC; 80048; 80053; 81003; 83605; 83690; 83735; 84100; 85025; 85027; 86850; 86900; 86901; 87086; 93005; 93010; 99285-25; G0378; J0131

== ENCOUNTER 2025-02-02 18:34 | Inpatient (IN) | payer OTHER ==
[2025-02-02 18:41] VITALS: BMI 24.7
[2025-02-02] MEDS: FAMOTIDINE 20 MG/50 ML IVPB 20 MG/50 ML MG IVPB ONE (20:45)
[2025-02-02] MEDS ORDERED: ACETAMINOPHEN INJECTION 100 ML ONE (20:55)
[2025-02-02] MEDS: SODIUM CHLORIDE 0.9% 500 ML INFUS.BAG IV ONE (21:13)
[2025-02-02] MEDS: ONDANSETRON 4 MG/2 ML VIAL IVPUSH ONE (21:14)
[2025-02-02] MEDS: ACETAMINOPHEN 1000 MG/100 ML BAG IVPB ONE (21:14)
[2025-02-02] MEDS ORDERED: ONDANSETRON 4 MG/2 ML VIAL ONE (21:15)
[2025-02-02 21:26] LABS: ABSOLUTE IMMATURE GRANULOCYTES 0.02 x10^3/uL (0.0-0.031); BASOPHILS # 0.01 x10^3/uL (0.01-0.08); EOSINOPHIL % 0.1 % (0.7-5.8); EOSINOPHILS # 0.01 x10^3/uL (0.04-0.36); MCHC 32.6 g/dl (32.2-35.5); MEAN CELL VOLUME 101.8 fl (79.4-94.8); MONOCYTE # 0.38 x10^3/uL (0.24-0.86); MONOCYTE % 4.1 % (4.7-12.5); RDW 18.6 % (12.3-16.6)
[2025-02-02 21:44] LABS: GLUCOSE,RANDOM 107 mg/dL (74-106)
[2025-02-02] MEDS ORDERED: FAMOTIDINE 20 MG/50 ML IVPB 20 MG/50 ML MG IVPB ONE (21:44)
[2025-02-02 21:45] LABS: CO2 26 mmol/L (21-32)
[2025-02-02 21:48] LABS: CREATININE 0.7 mg/dL (0.55-1.3); SGOT/AST 101 U/L (15-37)
[2025-02-02 21:49] LABS: TOT PROT 7.9 g/dl (6.4-8.2)
[2025-02-02 21:50] LABS: ALK PHOS 131 U/L (45-117)
[2025-02-02 21:53] LABS: SGPT/ALT 35 U/L (13-61)
[2025-02-02] MEDS: morphine CARPU-JECT 4 MG/1 ML DISP.SYRIN IVPUSH ONE (22:48)
[2025-02-02 23:28] LABS: INR 0.97 (0.83-1.09); PROTHROMBIN TIME (PATIENT) 10.6 SEC (9.7-13.0)
[2025-02-02 23:30] LABS: ACTIVATED PTT 32.7 SECONDS (25.2-36.5)
[2025-02-02 23:45] LABS: CO2 25.0 mmol/L (21-32); GLUCOSE,RANDOM 104.0 mg/dL (74-106)
[2025-02-02 23:48] LABS: CREATININE 0.6 mg/dL (0.55-1.3); SGOT/AST 23.0 U/L (15-37); SGPT/ALT 26.0 U/L (13-61)
[2025-02-02 23:50] LABS: TOT PROT 6.7 g/dl (6.4-8.2)
[2025-02-02 23:51] LABS: ALK PHOS 125.0 U/L (45-117)
[2025-02-03] MEDS ORDERED: ACETAMINOPHEN INJECTION 100 ML ONE (01:40)
[2025-02-03] MEDS: ACETAMINOPHEN 1000 MG/100 ML BAG IVPB ONE (01:50)
[2025-02-03] MEDS ORDERED: ONDANSETRON 4 MG/2 ML VIAL IVPUSH PRN (02:35)
[2025-02-03] MEDS: SODIUM CHLORIDE 1,000 ML IV SCH (03:30)
[2025-02-03 07:43] LABS: MCHC 30.4 g/dl (32.2-35.5); MEAN CELL VOLUME 107.2 fl (79.4-94.8); MEAN PLT VOLUME 8.8 fl (9.4-12.3); RDW 18.8 % (12.3-16.6)
[2025-02-03 09:02] LABS: CO2 24.0 mmol/L (21-32); CREATININE 0.6 mg/dL (0.55-1.3); GLUCOSE,RANDOM 87.0 mg/dL (74-106); SGOT/AST 28.0 U/L (15-37); SGPT/ALT 26.0 U/L (13-61)
[2025-02-03 09:03] LABS: TOT PROT 6.0 g/dl (6.4-8.2)
[2025-02-03 09:09] LABS: ALK PHOS 113.0 U/L (45-117)
[2025-02-03 15:24] VITALS: RESP 18
[2025-02-03] MEDS: ACETAMINOPHEN 1000 MG/100 ML BAG IVPB PRN (20:54)
[2025-02-03] MEDS: CAPECITABINE 500 MG TABLET PO SCH (21:36)
[2025-02-04 09:35] LABS: MCHC 31.1 g/dl (32.2-35.5); MEAN CELL VOLUME 107.3 fl (79.4-94.8); MEAN PLT VOLUME 8.6 fl (9.4-12.3); RDW 18.4 % (12.3-16.6)
[2025-02-04 10:05] LABS: CO2 28.0 mmol/L (21-32); GLUCOSE,RANDOM 123.0 mg/dL (74-106)
[2025-02-04 10:08] LABS: CREATININE 0.5 mg/dL (0.55-1.3); SGOT/AST 21.0 U/L (15-37); SGPT/ALT 26.0 U/L (13-61)
[2025-02-04 10:10] LABS: TOT PROT 6.0 g/dl (6.4-8.2)
[2025-02-04 10:11] LABS: ALK PHOS 106.0 U/L (45-117)
[2025-02-04] MEDS: CAPECITABINE 500 MG TABLET PO SCH (11:28)
[2025-02-04 14:47] VITALS: BP 109/76; PULSE 77; TEMP 98.4
== END 2025-02-04 18:02 | disposition home or self-care (01) | DRG 247 ==
LOC: JER 18:34 → JERBED 02-03 00:37 → OBSVTOIN 02-03 00:59 → J6S 02-03 12:29
PROVIDERS: ADMIT Internal Medicine
DX: K56.600 Partial intestinal obstruction, unspecified as to cause (principal); C78.7 Secondary malignant neoplasm of liver and intrahepatic bile duct; C79.51 Secondary malignant neoplasm of bone; C50.912 Malignant neoplasm of unspecified site of left female breast; E87.1 Hypo-osmolality and hyponatremia; E86.0 Dehydration; D64.9 Anemia, unspecified; K59.09 Other constipation
CPT/HCPCS: 36415; 74019-TC-FY; 74177-TC; 80053; 83605; 83735; 84100; 84484; 85025; 85027; 85610; 85730; 86850; 86900; 86901; 93005; 93010; 99285-25; G0378; J8522; Q9967